=== PATIENT | female | born 1930 | race Caucasian/White ===

== ENCOUNTER 2020-03-22 04:45 | Inpatient (IN) | payer OTHER, MEDICARE ==
[2020-03-22] MEDS ORDERED: FUROSEMIDE 40 MG/4 ML INJECTABLE VIAL IVPUSH ONE (05:02)
[2020-03-22 05:03] VITALS: BMI 29.2
[2020-03-22] MEDS ORDERED: METOPROLOL TARTRATE 5 MG/5 ML VIAL IVPUSH ONE (05:45)
[2020-03-22] MEDS ORDERED: FUROSEMIDE 40 MG/4 ML INJECTABLE VIAL ONE ×2 (06:00→13:58)
[2020-03-22] MEDS ORDERED: METOPROLOL TARTRATE 5 MG/5 ML VIAL ONE ×2 (06:02→14:30)
[2020-03-22 06:51] LABS: BASO % 0.2 % (0-2.0); EOS % 0.4 % (0-4.5); HEMATOCRIT 39.1 % (32.4-45.2); HEMOGLOBIN 12.9 GM/dL (10.7-15.3); LYMPH % 9.5 % (8-40); MCH 32.1 pg (25.7-33.7); MCHC 32.9 g/dl (32.0-36.0); MEAN CELL VOLUME 97.5 fl (80-96); MEAN PLT VOLUME 10.3 fl (7.5-11.1); MONO % 7.7 % (3.8-10.2); NEUT % 82.2 % (42.8-82.8); PLATELET COUNT 170 K/MM3 (134-434); RBC 4.01 M/mm3 (3.60-5.2); RDW 14.1 % (11.6-15.6); WHITE BLOOD COUNT 12.1 K/mm3 (4.0-10.0)
[2020-03-22] MEDS ORDERED: METOPROLOL TARTRATE 25 MG TABLET (FP) PO ONE (07:08)
[2020-03-22 07:16] LABS: CHLORIDE 106 mmol/L (98-107); POTASSIUM 4.1 mmol/L (3.5-5.1); SODIUM 140 mmol/L (136-145)
[2020-03-22 07:17] LABS: CALCIUM 9.1 mg/dL (8.5-10.1)
[2020-03-22 07:18] LABS: ALBUMIN 3.6 g/dl (3.4-5.0); ANION GAP 6 MMOL/L (8-16); BLOOD UREA NITROGEN 22.8 mg/dL (7-18); CO2 28 mmol/L (21-32); GLUCOSE,RANDOM 133 mg/dL (74-106)
[2020-03-22 07:21] LABS: CREATININE 0.8 mg/dL (0.55-1.3); SGOT/AST 56 U/L (15-37); SGPT/ALT 85 U/L (13-61)
[2020-03-22 07:22] LABS: BILIRUBIN,TOTAL 1.1 mg/dL (0.2-1)
[2020-03-22 07:23] LABS: ALK PHOS 114 U/L (45-117); TOT PROT 7.3 g/dl (6.4-8.2)
[2020-03-22 07:26] LABS: N-TERMINAL BNP 4716.6 pg/ml (5-450)
[2020-03-22] MEDS ORDERED: METOPROLOL TARTRATE 25 MG TABLET (FP) ONE (08:01)
[2020-03-22] MEDS ORDERED: ATORVASTATIN CA 20 MG TABLET (FP) PO SCH (13:45)
[2020-03-22] MEDS ORDERED: APIXABAN 2.5 MG TABLET ONE (13:57)
[2020-03-22] MEDS ORDERED: ATORVASTATIN CA 20 MG TABLET (FP) ONE (13:57)
[2020-03-22] MEDS ORDERED: LISINOPRIL 20 MG TABLET ONE (13:58)
[2020-03-22] MEDS ORDERED: METOPROLOL TARTRATE 5 MG/5 ML VIAL IVPUSH PRN (14:09)
[2020-03-22] MEDS: LISINOPRIL 20 MG TABLET PO SCH (14:18)
[2020-03-22] MEDS: ATORVASTATIN CA 20 MG TABLET (FP) PO SCH (14:18)
[2020-03-22] MEDS: APIXABAN 2.5 MG TABLET PO SCH ×2 (14:18→21:54)
[2020-03-22] MEDS: FUROSEMIDE 40 MG/4 ML INJECTABLE VIAL IVPUSH SCH (14:18)
[2020-03-22] MEDS: METOPROLOL TARTRATE 25 MG TABLET (FP) PO SCH (21:54)
[2020-03-23] MEDS: FUROSEMIDE 40 MG/4 ML INJECTABLE VIAL IVPUSH SCH ×2 (05:57→13:35)
[2020-03-23 07:43] LABS: BASO % 0.2 % (0-2.0); EOS % 0.7 % (0-4.5); HEMOGLOBIN 12.3 GM/dL (10.7-15.3); LYMPH % 12.5 % (8-40); MCH 32.2 pg (25.7-33.7); MCHC 33.2 g/dl (32.0-36.0); MONO % 10.7 % (3.8-10.2); NEUT % 75.9 % (42.8-82.8); PLATELET COUNT 163 K/MM3 (134-434); RBC 3.82 M/mm3 (3.60-5.2); RDW 13.7 % (11.6-15.6); WHITE BLOOD COUNT 10.3 K/mm3 (4.0-10.0)
[2020-03-23 08:05] LABS: CHLORIDE 102 mmol/L (98-107); POTASSIUM 3.6 mmol/L (3.5-5.1); SODIUM 141 mmol/L (136-145)
[2020-03-23 08:07] LABS: CALCIUM 9.1 mg/dL (8.5-10.1)
[2020-03-23 08:08] LABS: ANION GAP 7 MMOL/L (8-16); CO2 32 mmol/L (21-32)
[2020-03-23 08:09] LABS: BLOOD UREA NITROGEN 24.3 mg/dL (7-18); GLUCOSE,RANDOM 126 mg/dL (74-106)
[2020-03-23 08:10] LABS: CHOLESTEROL 130 mg/dL (50-200)
[2020-03-23 08:12] LABS: LDL CHOLESTEROL (ONLY SJRH) 70 mg/dL (5-100); PHOSPHOROUS 4.2 mg/dL (2.5-4.9)
[2020-03-23 08:13] LABS: TRIGLYCERIDES 100 mg/dL (0-150)
[2020-03-23 08:14] LABS: HDL CHOLESTEROL 57 mg/dL (40-60)
[2020-03-23] MEDS: APIXABAN 2.5 MG TABLET PO SCH (10:04)
[2020-03-23] MEDS: LISINOPRIL 20 MG TABLET PO SCH (10:05)
[2020-03-23] MEDS: METOPROLOL TARTRATE 25 MG TABLET (FP) PO SCH ×2 (10:05→21:48)
[2020-03-23] MEDS: amLODIPine BESYLATE 10 MG TABLET (FP) PO SCH (10:05)
[2020-03-23] MEDS: ATORVASTATIN CA 20 MG TABLET (FP) PO SCH (21:48)
[2020-03-23] MEDS: APIXABAN 5 MG TABLET PO SCH (21:48)
[2020-03-24] MEDS: FUROSEMIDE 40 MG/4 ML INJECTABLE VIAL IVPUSH SCH ×2 (06:20→13:17)
[2020-03-24] MEDS ORDERED: ALBUTEROL SO4 0.042% IH SOL 1.25 MG/3 ML VIAL.NEB NEB ONE ×2 (06:30→14:15)
[2020-03-24 07:18] LABS: BASO % 0.4 % (0-2.0); EOS % 3.2 % (0-4.5); HEMATOCRIT 38.5 % (32.4-45.2); HEMOGLOBIN 12.9 GM/dL (10.7-15.3); MCH 32.4 pg (25.7-33.7); MCHC 33.6 g/dl (32.0-36.0); MEAN CELL VOLUME 96.7 fl (80-96); MONO % 12.8 % (3.8-10.2); NEUT % 67.6 % (42.8-82.8); PLATELET COUNT 162 K/MM3 (134-434); RBC 3.98 M/mm3 (3.60-5.2); WHITE BLOOD COUNT 7.7 K/mm3 (4.0-10.0)
[2020-03-24 07:42] LABS: POTASSIUM 3.5 mmol/L (3.5-5.1)
[2020-03-24 07:47] LABS: ALBUMIN 3.2 g/dl (3.4-5.0)
[2020-03-24 07:48] LABS: BLOOD UREA NITROGEN 27.6 mg/dL (7-18)
[2020-03-24 07:52] LABS: BILIRUBIN,TOTAL 1.4 mg/dL (0.2-1); TOT PROT 6.7 g/dl (6.4-8.2)
[2020-03-24] MEDS: METOPROLOL TARTRATE 25 MG TABLET (FP) PO SCH ×2 (09:48→22:03)
[2020-03-24] MEDS: amLODIPine BESYLATE 10 MG TABLET (FP) PO SCH (09:48)
[2020-03-24] MEDS: LISINOPRIL 20 MG TABLET PO SCH (09:48)
[2020-03-24] MEDS: APIXABAN 5 MG TABLET PO SCH ×2 (09:48→22:03)
[2020-03-24] MEDS: ATORVASTATIN CA 20 MG TABLET (FP) PO SCH (22:03)
[2020-03-25] MEDS: FUROSEMIDE 40 MG/4 ML INJECTABLE VIAL IVPUSH SCH ×2 (05:57→14:29)
[2020-03-25 07:58] LABS: HEMATOCRIT 42.4 % (32.4-45.2); HEMOGLOBIN 14.3 GM/dL (10.7-15.3); MCH 32.9 pg (25.7-33.7); MCHC 33.6 g/dl (32.0-36.0); MEAN CELL VOLUME 97.7 fl (80-96); MEAN PLT VOLUME 10.2 fl (7.5-11.1); PLATELET COUNT 188 K/MM3 (134-434); RBC 4.34 M/mm3 (3.60-5.2); RDW 13.8 % (11.6-15.6)
[2020-03-25 08:29] LABS: POTASSIUM 3.7 mmol/L (3.5-5.1)
[2020-03-25 08:33] LABS: ALBUMIN 3.7 g/dl (3.4-5.0); CALCIUM 9.5 mg/dL (8.5-10.1)
[2020-03-25 08:34] LABS: BLOOD UREA NITROGEN 26.2 mg/dL (7-18)
[2020-03-25 08:38] LABS: BILIRUBIN,TOTAL 1.2 mg/dL (0.2-1); TOT PROT 7.5 g/dl (6.4-8.2)
[2020-03-25] MEDS: amLODIPine BESYLATE 10 MG TABLET (FP) PO SCH (09:02)
[2020-03-25] MEDS: LISINOPRIL 20 MG TABLET PO SCH (09:02)
[2020-03-25] MEDS: APIXABAN 5 MG TABLET PO SCH ×2 (09:02→21:44)
[2020-03-25] MEDS: METOPROLOL TARTRATE 25 MG TABLET (FP) PO SCH ×2 (09:02→21:44)
[2020-03-25] MEDS ORDERED: BENZOCAINE/MENTH/CETYLPYRD CL 1 EACH LOZENGE MM PRN (10:30)
[2020-03-25] MEDS: ALBUTEROL SO4 0.083% IH SOL 2.5 MG/3 ML VIAL.NEB. NEB PRN ×2 (13:40→21:25)
[2020-03-25] MEDS: ATORVASTATIN CA 20 MG TABLET (FP) PO SCH (21:44)
[2020-03-26] MEDS: FUROSEMIDE 40 MG/4 ML INJECTABLE VIAL IVPUSH SCH ×2 (06:00→14:06)
[2020-03-26 07:21] LABS: HEMATOCRIT 37.7 % (32.4-45.2); HEMOGLOBIN 12.9 GM/dL (10.7-15.3); MCH 33.5 pg (25.7-33.7); MCHC 34.3 g/dl (32.0-36.0); MEAN CELL VOLUME 97.5 fl (80-96); MEAN PLT VOLUME 10.8 fl (7.5-11.1); PLATELET COUNT 166 K/MM3 (134-434); RBC 3.86 M/mm3 (3.60-5.2); RDW 13.8 % (11.6-15.6); WHITE BLOOD COUNT 8.6 K/mm3 (4.0-10.0)
[2020-03-26 07:40] LABS: POTASSIUM 3.4 mmol/L (3.5-5.1)
[2020-03-26 07:54] LABS: ALBUMIN 2.8 g/dl (3.4-5.0); CALCIUM 9.1 mg/dL (8.5-10.1)
[2020-03-26 07:59] LABS: TOT PROT 6.3 g/dl (6.4-8.2)
[2020-03-26] MEDS: LISINOPRIL 20 MG TABLET PO SCH (10:00)
[2020-03-26] MEDS: METOPROLOL TARTRATE 25 MG TABLET (FP) PO SCH ×2 (10:00→22:14)
[2020-03-26] MEDS: amLODIPine BESYLATE 10 MG TABLET (FP) PO SCH (10:00)
[2020-03-26] MEDS: APIXABAN 5 MG TABLET PO SCH ×2 (10:01→22:14)
[2020-03-26] MEDS ORDERED: POTASSIUM CHLORIDE TABS 20 MEQ TABLET.ER (FP) PO ONE (14:35)
[2020-03-26] MEDS: ATORVASTATIN CA 20 MG TABLET (FP) PO SCH (22:14)
[2020-03-27] MEDS: FUROSEMIDE 40 MG/4 ML INJECTABLE VIAL IVPUSH SCH (06:09)
[2020-03-27] MEDS ORDERED: POTASSIUM CHLORIDE TABS 20 MEQ TABLET.ER (FP) PO ONE (07:59)
[2020-03-27 09:03] VITALS: TEMP 98.2
[2020-03-27] MEDS: APIXABAN 5 MG TABLET PO SCH (09:20)
[2020-03-27] MEDS: METOPROLOL TARTRATE 25 MG TABLET (FP) PO SCH (09:20)
[2020-03-27] MEDS: amLODIPine BESYLATE 10 MG TABLET (FP) PO SCH (09:20)
[2020-03-27] MEDS: LISINOPRIL 20 MG TABLET PO SCH (09:20)
[2020-03-27 14:48] VITALS: BP 122/74; PULSE 62
== END 2020-03-27 16:00 | disposition home health service (06) | DRG 291 ==
LOC: JER 04:45 → JERBED 09:00 → J4S 18:38
PROVIDERS: ADMIT Internal Medicine; ATTEND Internal Medicine
DX: I11.0 Hypertensive heart disease with heart failure (principal); I50.31 Acute diastolic (congestive) heart failure; J98.11 Atelectasis; E78.5 Hyperlipidemia, unspecified; I48.91 Unspecified atrial fibrillation; D72.829 Elevated white blood cell count, unspecified; I25.10 Atherosclerotic heart disease of native coronary artery without angina pectoris; I71.2 Thoracic aortic aneurysm, without rupture; Z86.19 Personal history of other infectious and parasitic diseases
CPT/HCPCS: 36415; 71045-TC-FY; 80048; 80053; 80061; 82550; 82728; 83036; 83721; 83735; 83880; 84100; 84132; 84443; 84484; 85025; 85027; 85379; 86140; 93005; 93010; 93306-TC; 93970-TC; 94640; 94761; 97116-GP; 97161-GP; 99291; C9803; U0003

== ENCOUNTER 2020-05-03 09:52 | Inpatient (IN) | payer OTHER, MEDICARE ==
[2020-05-03] MEDS ORDERED: dilTIAZem HCL 50 MG/10 ML - 10 ML VIAL IVPUSH ONE ×2 (10:31→12:43)
[2020-05-03] MEDS ORDERED: dilTIAZem HCL 125 MG/25 ML - 25 ML VIAL ONE ×2 (10:57→12:49)
[2020-05-03 11:57] LABS: BASO % 0.2 % (0-2.0); EOS % 0.1 % (0-4.5); HEMATOCRIT 37.8 % (32.4-45.2); HEMOGLOBIN 12.5 GM/dL (10.7-15.3); LYMPH % 6.4 % (8-40); MCH 32.6 pg (25.7-33.7); MCHC 33.1 g/dl (32.0-36.0); MEAN CELL VOLUME 98.5 fl (80-96); MEAN PLT VOLUME 10.9 fl (7.5-11.1); MONO % 6.5 % (3.8-10.2); NEUT % 86.8 % (42.8-82.8); PLATELET COUNT 151 K/MM3 (134-434); RBC 3.84 M/mm3 (3.60-5.2); RDW 14.5 % (11.6-15.6); WHITE BLOOD COUNT 10.7 K/mm3 (4.0-10.0)
[2020-05-03] MEDS ORDERED: PIPERACILLIN/TAZOB 4.5 GM 4.5 GM in DEXTROSE 5%-WATER 100 ML IVPB ONE (12:03)
[2020-05-03] MEDS ORDERED: VANCOMYCIN HCL 1,500 MG in DEXTROSE 5%-WATER - 500 ML IVPB ONE (12:03)
[2020-05-03 12:04] LABS: INR 1.28 (0.83-1.09); PROTHROMBIN TIME (PATIENT) 15.6 SEC (9.7-13.0)
[2020-05-03 12:07] LABS: ACTIVATED PTT 30.7 SECONDS (25.2-36.5)
[2020-05-03] MEDS ORDERED: PIPERACILLIN/TAZOB 4.5 GM 4.5 GM/100 ML BAG IVPB ONE (12:13)
[2020-05-03 12:17] LABS: CHLORIDE 109 mmol/L (98-107); SODIUM 141 mmol/L (136-145)
[2020-05-03 12:19] LABS: ALBUMIN 3.6 g/dl (3.4-5.0); ANION GAP 4 MMOL/L (8-16); CALCIUM 9.2 mg/dL (8.5-10.1); CO2 28 mmol/L (21-32); GLUCOSE,RANDOM 139 mg/dL (74-106)
[2020-05-03 12:20] LABS: BLOOD UREA NITROGEN 33.9 mg/dL (7-18)
[2020-05-03 12:22] LABS: SGOT/AST 33 U/L (15-37); SGPT/ALT 64 U/L (13-61)
[2020-05-03 12:23] LABS: CREATININE 1.1 mg/dL (0.55-1.3)
[2020-05-03 12:24] LABS: BILIRUBIN,TOTAL 0.8 mg/dL (0.2-1)
[2020-05-03 12:25] LABS: ALK PHOS 88 U/L (45-117)
[2020-05-03 12:27] LABS: N-TERMINAL BNP 4797.6 pg/ml (5-450)
[2020-05-03] MEDS ORDERED: dilTIAZem HCL 30 MG TABLET PO ONE (12:44)
[2020-05-03] MEDS ORDERED: dilTIAZem HCL 30 MG TABLET ONE (12:49)
[2020-05-03] MEDS ORDERED: FUROSEMIDE 40 MG/4 ML INJECTABLE VIAL ONE (15:08)
[2020-05-03] MEDS: FUROSEMIDE 40 MG/4 ML INJECTABLE VIAL IVPUSH SCH (15:09)
[2020-05-03] MEDS: METOPROLOL TARTRATE 5 MG/5 ML VIAL IVPUSH PRN (15:30)
[2020-05-03] MEDS ORDERED: METOPROLOL TARTRATE 5 MG/5 ML VIAL ONE (16:01)
[2020-05-03] MEDS ORDERED: APIXABAN 5 MG TABLET ONE (21:48)
[2020-05-03] MEDS ORDERED: ATORVASTATIN CA 20 MG TABLET (FP) ONE (21:48)
[2020-05-03] MEDS: APIXABAN 5 MG TABLET PO SCH (21:59)
[2020-05-03] MEDS: ATORVASTATIN CA 20 MG TABLET (FP) PO SCH (21:59)
[2020-05-04 06:45] LABS: HEMATOCRIT 35.3 % (32.4-45.2); HEMOGLOBIN 11.7 GM/dL (10.7-15.3); MCH 32.9 pg (25.7-33.7); MCHC 33.1 g/dl (32.0-36.0); MEAN CELL VOLUME 99.4 fl (80-96); MEAN PLT VOLUME 10.6 fl (7.5-11.1); PLATELET COUNT 140 K/MM3 (134-434); RBC 3.55 M/mm3 (3.60-5.2); RDW 14.2 % (11.6-15.6); WHITE BLOOD COUNT 9.2 K/mm3 (4.0-10.0)
[2020-05-04 07:07] LABS: CALCIUM 8.4 mg/dL (8.5-10.1)
[2020-05-04 07:08] LABS: BLOOD UREA NITROGEN 30.7 mg/dL (7-18)
[2020-05-04] MEDS ORDERED: metoPROLOL SUCCINATE 25 MG TAB.SR.24H (FP) PO SCH (10:00)
[2020-05-04] MEDS: APIXABAN 5 MG TABLET PO SCH ×2 (10:46→21:14)
[2020-05-04] MEDS: FUROSEMIDE 40 MG/4 ML INJECTABLE VIAL IVPUSH SCH (10:47)
[2020-05-04] MEDS: ATORVASTATIN CA 20 MG TABLET (FP) PO SCH (21:14)
[2020-05-05] MEDS ORDERED: MELATONIN 5 MG TABLETS PO ONE (00:25)
[2020-05-05] MEDS: METOPROLOL TARTRATE 5 MG/5 ML VIAL IVPUSH PRN ×3 (00:39→16:19)
[2020-05-05] MEDS ORDERED: FUROSEMIDE 40 MG/4 ML INJECTABLE VIAL IVPUSH ONE (04:45)
[2020-05-05 08:18] LABS: BLOOD UREA NITROGEN 32.2 mg/dL (7-18); CALCIUM 8.9 mg/dL (8.5-10.1); MAGNESIUM 2.2 mg/dL (1.8-2.4)
[2020-05-05] MEDS: APIXABAN 5 MG TABLET PO SCH ×2 (09:24→21:07)
[2020-05-05] MEDS: FUROSEMIDE 40 MG/4 ML INJECTABLE VIAL IVPUSH SCH (09:24)
[2020-05-05] MEDS: NYSTATIN 100000 UNIT/GM TOPICAL OINTMENT 15 GM TUBE TP SCH ×2 (11:41→21:07)
[2020-05-05] MEDS: ATORVASTATIN CA 20 MG TABLET (FP) PO SCH (21:07)
[2020-05-06] MEDS: FUROSEMIDE 40 MG/4 ML INJECTABLE VIAL IVPUSH SCH ×2 (06:45→09:30)
[2020-05-06 07:01] LABS: HEMATOCRIT 37.6 % (32.4-45.2); HEMOGLOBIN 12.3 GM/dL (10.7-15.3); MCH 32.8 pg (25.7-33.7); MCHC 32.8 g/dl (32.0-36.0); MEAN PLT VOLUME 10.3 fl (7.5-11.1); PLATELET COUNT 167 K/MM3 (134-434); RBC 3.76 M/mm3 (3.60-5.2); RDW 14.2 % (11.6-15.6); WHITE BLOOD COUNT 8.5 K/mm3 (4.0-10.0)
[2020-05-06 07:22] LABS: CALCIUM 9.1 mg/dL (8.5-10.1)
[2020-05-06 07:23] LABS: BLOOD UREA NITROGEN 31.3 mg/dL (7-18)
[2020-05-06 07:26] LABS: PHOSPHOROUS 4.4 mg/dL (2.5-4.9)
[2020-05-06 07:27] LABS: MAGNESIUM 2.1 mg/dL (1.8-2.4)
[2020-05-06] MEDS: NYSTATIN 100000 UNIT/GM TOPICAL OINTMENT 15 GM TUBE TP SCH ×2 (09:01→21:14)
[2020-05-06] MEDS: APIXABAN 5 MG TABLET PO SCH ×2 (09:01→21:14)
[2020-05-06] MEDS ORDERED: FUROSEMIDE 40 MG/4 ML INJECTABLE VIAL IVPUSH ONE (10:47)
[2020-05-06] MEDS ORDERED: metoPROLOL SUCCINATE 25 MG TAB.SR.24H (FP) PO ONE (10:49)
[2020-05-06] MEDS: ATORVASTATIN CA 20 MG TABLET (FP) PO SCH (21:14)
[2020-05-07 08:09] LABS: HEMATOCRIT 38.5 % (32.4-45.2); HEMOGLOBIN 12.8 GM/dL (10.7-15.3); MCH 32.7 pg (25.7-33.7); MCHC 33.2 g/dl (32.0-36.0); MEAN CELL VOLUME 98.7 fl (80-96); MEAN PLT VOLUME 10.4 fl (7.5-11.1); PLATELET COUNT 172 K/MM3 (134-434); WHITE BLOOD COUNT 8.9 K/mm3 (4.0-10.0)
[2020-05-07 08:23] LABS: BLOOD UREA NITROGEN 34.1 mg/dL (7-18); CALCIUM 8.8 mg/dL (8.5-10.1)
[2020-05-07] MEDS ORDERED: PT OWN MED DRAWER 7, Y5N ONE (09:44)
[2020-05-07] MEDS: APIXABAN 5 MG TABLET PO SCH ×2 (09:48→21:02)
[2020-05-07] MEDS: FUROSEMIDE 40 MG/4 ML INJECTABLE VIAL IVPUSH SCH (09:48)
[2020-05-07] MEDS: NYSTATIN 100000 UNIT/GM TOPICAL OINTMENT 15 GM TUBE TP SCH ×2 (09:49→21:03)
[2020-05-07] MEDS ORDERED: ACETAMINOPHEN 325 MG TABLET (FP) PO PRN (11:39)
[2020-05-07] MEDS ORDERED: FUROSEMIDE 40 MG/4 ML INJECTABLE VIAL IVPUSH ONE (12:00)
[2020-05-07] MEDS: ATORVASTATIN CA 20 MG TABLET (FP) PO SCH (21:02)
[2020-05-08 07:46] LABS: HEMATOCRIT 38.4 % (32.4-45.2); HEMOGLOBIN 12.7 GM/dL (10.7-15.3); MCH 32.7 pg (25.7-33.7); MEAN PLT VOLUME 10.8 fl (7.5-11.1); PLATELET COUNT 163 K/MM3 (134-434); RBC 3.88 M/mm3 (3.60-5.2); RDW 14.4 % (11.6-15.6); WHITE BLOOD COUNT 7.7 K/mm3 (4.0-10.0)
[2020-05-08 08:02] LABS: BLOOD UREA NITROGEN 36.6 mg/dL (7-18); MAGNESIUM 2.2 mg/dL (1.8-2.4)
[2020-05-08 08:05] LABS: CREATININE 0.9 mg/dL (0.55-1.3); PHOSPHOROUS 4.2 mg/dL (2.5-4.9)
[2020-05-08] MEDS ORDERED: PT OWN MED DRAWER 7, Y5N ONE (09:02)
[2020-05-08] MEDS: FUROSEMIDE 40 MG/4 ML INJECTABLE VIAL IVPUSH SCH (09:06)
[2020-05-08] MEDS: APIXABAN 5 MG TABLET PO SCH ×2 (09:08→21:23)
[2020-05-08] MEDS: NYSTATIN 100000 UNIT/GM TOPICAL OINTMENT 15 GM TUBE TP SCH ×2 (09:08→21:25)
[2020-05-08] MEDS ORDERED: dilTIAZem HCL 60 MG TABLET PO SCH (10:45)
[2020-05-08] MEDS: dilTIAZem HCL 60 MG TABLET PO SCH ×2 (16:14→21:23)
[2020-05-08] MEDS: ATORVASTATIN CA 20 MG TABLET (FP) PO SCH (21:23)
[2020-05-09] MEDS: dilTIAZem HCL 60 MG TABLET PO SCH ×3 (05:53→21:01)
[2020-05-09 06:40] LABS: HEMOGLOBIN 12.2 GM/dL (10.7-15.3); MCH 32.7 pg (25.7-33.7); MEAN CELL VOLUME 98.9 fl (80-96); MEAN PLT VOLUME 10.6 fl (7.5-11.1); PLATELET COUNT 174 K/MM3 (134-434); RBC 3.74 M/mm3 (3.60-5.2); RDW 14.2 % (11.6-15.6); WHITE BLOOD COUNT 8.6 K/mm3 (4.0-10.0)
[2020-05-09 07:07] LABS: CALCIUM 8.6 mg/dL (8.5-10.1)
[2020-05-09 07:08] LABS: MAGNESIUM 2.2 mg/dL (1.8-2.4)
[2020-05-09 07:11] LABS: CREATININE 1.2 mg/dL (0.55-1.3); PHOSPHOROUS 3.6 mg/dL (2.5-4.9)
[2020-05-09] MEDS: FUROSEMIDE 40 MG/4 ML INJECTABLE VIAL IVPUSH SCH (09:02)
[2020-05-09] MEDS: APIXABAN 5 MG TABLET PO SCH ×2 (09:02→21:01)
[2020-05-09] MEDS: NYSTATIN 100000 UNIT/GM TOPICAL OINTMENT 15 GM TUBE TP SCH ×2 (09:03→21:01)
[2020-05-09] MEDS: ATORVASTATIN CA 20 MG TABLET (FP) PO SCH (21:01)
[2020-05-10] MEDS: dilTIAZem HCL 60 MG TABLET PO SCH ×2 (06:06→13:26)
[2020-05-10] MEDS: APIXABAN 5 MG TABLET PO SCH (09:02)
[2020-05-10] MEDS: NYSTATIN 100000 UNIT/GM TOPICAL OINTMENT 15 GM TUBE TP SCH (09:45)
[2020-05-10] MEDS ORDERED: FUROSEMIDE 40 MG TABLET (FP) PO SCH (10:00)
[2020-05-10 13:26] VITALS: BP 140/68; PULSE 90; TEMP 98.4
[2020-05-10 13:57] VITALS: BMI 32.8
== END 2020-05-10 16:50 | disposition home health service (06) | DRG 308 ==
LOC: JER 09:52 → JERBED 12:45 → J4W 23:14 → J4S 05-05 21:40
PROVIDERS: ADMIT Internal Medicine; ATTEND Internal Medicine
DX: I48.19 Other persistent atrial fibrillation (principal); I50.33 Acute on chronic diastolic (congestive) heart failure; I10 Essential (primary) hypertension; E78.5 Hyperlipidemia, unspecified; K63.5 Polyp of colon; I25.10 Atherosclerotic heart disease of native coronary artery without angina pectoris; E66.9 Obesity, unspecified; Z68.32 Body mass index [BMI] 32.0-32.9, adult; I77.810 Thoracic aortic ectasia; R00.0 Tachycardia, unspecified
CPT/HCPCS: 36415; 71045-TC-FY; 80048; 80053; 82550; 82962; 83735; 83880; 84100; 84443; 84484; 85025; 85027; 85610; 85730; 87040; 93005; 93010; 97116-GP; 97161-GP; 99285-25; C9803; U0003

== ENCOUNTER 2020-06-22 09:31 | Emergency (ER) | payer OTHER, MEDICARE ==
[2020-06-22 09:39] VITALS: TEMP 97.5; BMI 30.5
[2020-06-22 10:42] LABS: BASO % 0.3 % (0-2.0); EOS % 0.5 % (0-4.5); HEMATOCRIT 39.7 % (32.4-45.2); HEMOGLOBIN 13.2 GM/dL (10.7-15.3); LYMPH % 10.1 % (8-40); MCH 32.6 pg (25.7-33.7); MCHC 33.1 g/dl (32.0-36.0); MEAN CELL VOLUME 98.3 fl (80-96); MEAN PLT VOLUME 9.9 fl (7.5-11.1); MONO % 9.5 % (3.8-10.2); NEUT % 79.6 % (42.8-82.8); PLATELET COUNT 180 K/MM3 (134-434); RBC 4.04 M/mm3 (3.60-5.2); RDW 14.1 % (11.6-15.6); WHITE BLOOD COUNT 7.4 K/mm3 (4.0-10.0)
[2020-06-22 10:53] LABS: POTASSIUM 3.8 mmol/L (3.5-5.1)
[2020-06-22 10:55] LABS: BLOOD UREA NITROGEN 42.8 mg/dL (7-18); CALCIUM 9.1 mg/dL (8.5-10.1)
[2020-06-22 10:56] LABS: ALBUMIN 3.4 g/dl (3.4-5.0)
[2020-06-22 10:59] LABS: CREATININE 1.2 mg/dL (0.55-1.3)
[2020-06-22 11:01] LABS: BILIRUBIN,TOTAL 0.9 mg/dL (0.2-1); TOT PROT 6.9 g/dl (6.4-8.2)
[2020-06-22 11:39] LABS: EPI CELLS 13 /uL (0-25.1); HYALINE CASTS 0 /uL (0-3.1); PH,URINE 6.5 (5.0-8.0); URINE APPEARANCE CLEAR; URINE BACTERIA 224 /uL (0-1359); URINE BILIRUBIN NEGATIVE (NEGATIVE); URINE COLOR YELLOW; URINE GLUCOSE (UA) NEGATIVE (NEGATIVE); URINE KETONE NEGATIVE (NEGATIVE); URINE LEUK ESTERASE TRACE (NEGATIVE); URINE NITRITE NEGATIVE (NEGATIVE); URINE PROTEIN TRACE (NEGATIVE); URINE RBC 12 /uL (0-23.9); URINE UROBILINOGEN 0.2 mg/dL (0.2-1.0); URINE WBC 30 /uL (0-25.8)
[2020-06-22] MEDS ORDERED: IBUPROFEN 600 MG TABLET (FP) PO ONE (12:35)
[2020-06-22] MEDS ORDERED: ACETAMINOPHEN 325 MG TABLET (FP) PO ONE (12:36)
[2020-06-22] MEDS ORDERED: ACETAMINOPHEN 325 MG TABLET (FP) ONE (12:53)
[2020-06-22] MEDS ORDERED: LACTATED RINGERS SOLUTION 1000 ML INFUS.BAG IV ONE ×2 (13:35)
[2020-06-22] MEDS ORDERED: METOPROLOL TARTRATE 50 MG TABLET (FP) ONE (15:10)
[2020-06-22 15:21] VITALS: BP 149/94
[2020-06-22 16:06] VITALS: PULSE 90
== END 2020-06-22 16:29 | disposition home or self-care (01) ==
LOC: JER 09:31 → SUPCPDRO 09:31 → JER 16:29
DX: M54.41 Lumbago with sciatica, right side (principal)
CPT/HCPCS: 36415; 71045-TC-FY; 74176-TC; 76705-TC; 80053; 81003; 85025; 87086; 93005; 93010; 99285-25

== ENCOUNTER 2020-07-16 20:17 | Inpatient (IN) | payer OTHER, MEDICARE ==
[2020-07-16] MEDS ORDERED: LIDOCAINE 5% TOPICAL PATCH TP ONE (21:16)
[2020-07-16] MEDS ORDERED: LIDOCAINE 5% TOPICAL PATCH ONE (21:32)
[2020-07-16] MEDS ORDERED: LIDOCAINE PATCH REMOVAL MC SCH (22:00)
[2020-07-16] MEDS ORDERED: KETOROLAC TROMETHAMINE 15 MG/ML VIAL IVPUSH ONE (22:30)
[2020-07-16] MEDS ORDERED: KETOROLAC TROMETHAMINE 15 MG/ML VIAL ONE (22:49)
[2020-07-16 22:56] LABS: EOS % 1.6 % (0-4.5); HEMATOCRIT 36.5 % (32.4-45.2); MCH 31.3 pg (25.7-33.7); MCHC 32.7 g/dl (32.0-36.0); MEAN CELL VOLUME 95.5 fl (80-96); MONO % 16.6 % (3.8-10.2); NEUT % 61.8 % (42.8-82.8); PLATELET COUNT 208 K/MM3 (134-434); RBC 3.83 M/mm3 (3.60-5.2); RDW 14.7 % (11.6-15.6); WHITE BLOOD COUNT 7.7 K/mm3 (4.0-10.0)
[2020-07-16 23:32] LABS: POTASSIUM 4.2 mmol/L (3.5-5.1)
[2020-07-16 23:34] LABS: ALBUMIN 3.3 g/dl (3.4-5.0); CALCIUM 9.3 mg/dL (8.5-10.1)
[2020-07-16 23:37] LABS: CREATININE 1.5 mg/dL (0.55-1.3)
[2020-07-16 23:39] LABS: BILIRUBIN,TOTAL 0.4 mg/dL (0.2-1); TOT PROT 6.4 g/dl (6.4-8.2)
[2020-07-17 00:39] LABS: EPI CELLS 10 /uL (0-25.1); HYALINE CASTS 2 /uL (0-3.1); URINE APPEARANCE CLEAR; URINE BACTERIA 301 /uL (0-1359); URINE BILIRUBIN NEGATIVE (NEGATIVE); URINE COLOR YELLOW; URINE GLUCOSE (UA) NEGATIVE (NEGATIVE); URINE KETONE NEGATIVE (NEGATIVE); URINE LEUK ESTERASE 2+ (NEGATIVE); URINE NITRITE NEGATIVE (NEGATIVE); URINE PROTEIN 1+ (NEGATIVE); URINE RBC 8 /uL (0-23.9); URINE UROBILINOGEN 0.2 mg/dL (0.2-1.0); URINE WBC 289 /uL (0-25.8)
[2020-07-17] MEDS ORDERED: FUROSEMIDE 40 MG/4 ML INJECTABLE VIAL IVPUSH ONE (02:03)
[2020-07-17] MEDS ORDERED: ACETAMINOPHEN 1000 MG/100 ML VIAL (NON FORMULARY) IVPB ONE (02:05)
[2020-07-17] MEDS ORDERED: ACETAMINOPHEN 325 MG TABLET (FP) PO ONE (02:05)
[2020-07-17] MEDS ORDERED: ACETAMINOPHEN 500 MG TABLET (FP) PO ONE (02:06)
[2020-07-17] MEDS ORDERED: ACETAMINOPHEN INJECTION 100 ML IVPB ONE (02:06)
[2020-07-17] MEDS ORDERED: KETOROLAC TROMETHAMINE 15 MG/ML VIAL IVPUSH PRN (02:08)
[2020-07-17] MEDS ORDERED: SODIUM CHLORIDE 1,000 ML IV SCH (02:15)
[2020-07-17] MEDS ORDERED: FUROSEMIDE 40 MG/4 ML INJECTABLE VIAL ONE (03:07)
[2020-07-17] MEDS ORDERED: CEFTRIAXONE 1 GM/50 ML BAG ONE (04:33)
[2020-07-17] MEDS: CEFTRIAXONE 1 GM in DEXTROSE 5%-WATER - 50 ML IVPB SCH (04:38)
[2020-07-17] MEDS ORDERED: morphine CARPU-JECT 2 MG/1 ML DISP.SYRIN IVPUSH ONE (04:56)
[2020-07-17] MEDS ORDERED: MORPHINE SULFATE 2 MG/ML VIAL ONE (05:01)
[2020-07-17] MEDS ORDERED: TRIMETHOBENZAMIDE HCL 200MG/2ML INJ IM PRN (06:52)
[2020-07-17] MEDS: INSULIN SLIDING SCALE (NOVOLOG) 1 VIAL SQ SCH ×3 (10:05→17:14)
[2020-07-17] MEDS ORDERED: LIDOCAINE 5% TOPICAL PATCH ONE (10:13)
[2020-07-17] MEDS ORDERED: APIXABAN 5 MG TABLET ONE (10:13)
[2020-07-17] MEDS: LIDOCAINE 5% TOPICAL PATCH TP SCH (10:26)
[2020-07-17] MEDS: APIXABAN 5 MG TABLET PO SCH ×2 (10:26→21:11)
[2020-07-17 10:34] LABS: BASO % 0.3 % (0-2.0); EOS % 0.9 % (0-4.5); HEMATOCRIT 36.2 % (32.4-45.2); HEMOGLOBIN 11.8 GM/dL (10.7-15.3); LYMPH % 14.4 % (8-40); MCH 31.2 pg (25.7-33.7); MCHC 32.6 g/dl (32.0-36.0); MEAN CELL VOLUME 95.9 fl (80-96); MEAN PLT VOLUME 9.4 fl (7.5-11.1); MONO % 10.3 % (3.8-10.2); NEUT % 74.1 % (42.8-82.8); PLATELET COUNT 214 K/MM3 (134-434); RBC 3.77 M/mm3 (3.60-5.2); RDW 14.5 % (11.6-15.6); WHITE BLOOD COUNT 6.9 K/mm3 (4.0-10.0)
[2020-07-17 10:51] LABS: POTASSIUM 4.4 mmol/L (3.5-5.1)
[2020-07-17 10:53] LABS: CALCIUM 9.4 mg/dL (8.5-10.1)
[2020-07-17 10:54] LABS: ALBUMIN 3.4 g/dl (3.4-5.0); BLOOD UREA NITROGEN 58.6 mg/dL (7-18); MAGNESIUM 2.2 mg/dL (1.8-2.4)
[2020-07-17 10:56] LABS: CREATININE 1.5 mg/dL (0.55-1.3)
[2020-07-17 10:57] LABS: PHOSPHOROUS 4.8 mg/dL (2.5-4.9)
[2020-07-17 10:58] LABS: BILIRUBIN,TOTAL 0.6 mg/dL (0.2-1); TOT PROT 6.5 g/dl (6.4-8.2)
[2020-07-17] MEDS: SODIUM CHLORIDE 1,000 ML IV SCH (13:30)
[2020-07-17] MEDS: CLOPIDOGREL BISULFATE 75 MG TABLET (FP) PO SCH (18:00)
[2020-07-17 19:49] LABS: URINE UREA NITROGEN 1201 mg/dL (350-1000)
[2020-07-17] MEDS: ACETAMINOPHEN 325 MG TABLET (FP) PO PRN (21:11)
[2020-07-17] MEDS: LIDOCAINE PATCH REMOVAL MC SCH ×2 (21:17→21:19)
[2020-07-18] MEDS: CYCLOBENZAPRINE HCL 5 MG TABLET PO PRN ×3 (01:41→13:58)
[2020-07-18] MEDS: ACETAMINOPHEN 325 MG TABLET (FP) PO PRN ×2 (03:16→10:22)
[2020-07-18] MEDS ORDERED: ACETAMINOPHEN 1000 MG/100 ML VIAL (NON FORMULARY) IVPB ONE (05:30)
[2020-07-18] MEDS: INSULIN SLIDING SCALE (NOVOLOG) 1 VIAL SQ SCH ×3 (06:00→16:57)
[2020-07-18 07:32] LABS: BASO % 0.4 % (0-2.0); EOS % 0.6 % (0-4.5); HEMATOCRIT 41.5 % (32.4-45.2); HEMOGLOBIN 13.3 GM/dL (10.7-15.3); LYMPH % 19.5 % (8-40); MCH 31.1 pg (25.7-33.7); MCHC 32.2 g/dl (32.0-36.0); MEAN CELL VOLUME 96.6 fl (80-96); MEAN PLT VOLUME 9.2 fl (7.5-11.1); MONO % 14.1 % (3.8-10.2); NEUT % 65.4 % (42.8-82.8); PLATELET COUNT 220 K/MM3 (134-434); RBC 4.29 M/mm3 (3.60-5.2); RDW 14.4 % (11.6-15.6); WHITE BLOOD COUNT 7.9 K/mm3 (4.0-10.0)
[2020-07-18 08:00] LABS: POTASSIUM 4.7 mmol/L (3.5-5.1)
[2020-07-18 08:11] LABS: BLOOD UREA NITROGEN 54.3 mg/dL (7-18); CALCIUM 9.3 mg/dL (8.5-10.1)
[2020-07-18 08:12] LABS: ALBUMIN 3.3 g/dl (3.4-5.0)
[2020-07-18 08:14] LABS: CREATININE 1.5 mg/dL (0.55-1.3)
[2020-07-18 08:15] LABS: PHOSPHOROUS 4.7 mg/dL (2.5-4.9)
[2020-07-18 08:16] LABS: BILIRUBIN,TOTAL 0.8 mg/dL (0.2-1); TOT PROT 6.6 g/dl (6.4-8.2)
[2020-07-18] MEDS ORDERED: cefTRIAXone SODIUM 1 GM VIAL ONE (10:13)
[2020-07-18] MEDS ORDERED: DEXTROSE 5%-WATER - 50 ML IVPB ONE (10:13)
[2020-07-18] MEDS: LIDOCAINE 5% TOPICAL PATCH TP SCH (10:19)
[2020-07-18] MEDS: APIXABAN 5 MG TABLET PO SCH ×2 (10:22→20:59)
[2020-07-18] MEDS: CLOPIDOGREL BISULFATE 75 MG TABLET (FP) PO SCH (10:22)
[2020-07-18] MEDS: CEFTRIAXONE 1 GM in DEXTROSE 5%-WATER - 50 ML IVPB SCH (10:24)
[2020-07-18] MEDS ORDERED: morphine SULFATE 4 MG/ML VIAL IVPUSH ONE ×2 (10:45→20:30)
[2020-07-18] MEDS: oxyCODONE HCL 5 MG TABLET PO PRN ×2 (12:31→22:05)
[2020-07-18] MEDS: SODIUM CHLORIDE 1,000 ML IV SCH (14:57)
[2020-07-18] MEDS: FUROSEMIDE 40 MG/4 ML INJECTABLE VIAL IVPUSH SCH (15:57)
[2020-07-18] MEDS: LIDOCAINE PATCH REMOVAL MC SCH (22:41)
[2020-07-19] MEDS: INSULIN SLIDING SCALE (NOVOLOG) 1 VIAL SQ SCH ×3 (06:31→16:17)
[2020-07-19] MEDS: CYCLOBENZAPRINE HCL 5 MG TABLET PO PRN ×2 (06:31→20:59)
[2020-07-19] MEDS: ACETAMINOPHEN 325 MG TABLET (FP) PO PRN ×2 (06:32→22:51)
[2020-07-19] MEDS: oxyCODONE HCL 5 MG TABLET PO PRN ×2 (06:34→22:50)
[2020-07-19 07:40] LABS: HEMOGLOBIN 11.5 GM/dL (10.7-15.3); MCH 31.4 pg (25.7-33.7); MCHC 32.9 g/dl (32.0-36.0); MEAN CELL VOLUME 95.4 fl (80-96); MEAN PLT VOLUME 9.2 fl (7.5-11.1); PLATELET COUNT 185 K/MM3 (134-434); RBC 3.67 M/mm3 (3.60-5.2); RDW 14.2 % (11.6-15.6)
[2020-07-19 07:58] LABS: POTASSIUM 4.1 mmol/L (3.5-5.1)
[2020-07-19 08:02] LABS: BLOOD UREA NITROGEN 54.5 mg/dL (7-18)
[2020-07-19 08:06] LABS: CREATININE 1.5 mg/dL (0.55-1.3)
[2020-07-19] MEDS: CLOPIDOGREL BISULFATE 75 MG TABLET (FP) PO SCH (10:01)
[2020-07-19] MEDS: APIXABAN 5 MG TABLET PO SCH ×2 (10:01→20:59)
[2020-07-19] MEDS: FUROSEMIDE 40 MG/4 ML INJECTABLE VIAL IVPUSH SCH (10:01)
[2020-07-19] MEDS: LIDOCAINE 5% TOPICAL PATCH TP SCH (10:03)
[2020-07-19] MEDS: LIDOCAINE PATCH REMOVAL MC SCH (20:59)
[2020-07-20] MEDS: CYCLOBENZAPRINE HCL 5 MG TABLET PO PRN ×2 (05:32→21:30)
[2020-07-20] MEDS: INSULIN SLIDING SCALE (NOVOLOG) 1 VIAL SQ SCH ×3 (06:15→16:56)
[2020-07-20] MEDS: oxyCODONE HCL 5 MG TABLET PO PRN ×2 (06:21→21:30)
[2020-07-20 08:23] LABS: HEMATOCRIT 35.3 % (32.4-45.2); HEMOGLOBIN 11.6 GM/dL (10.7-15.3); MCH 31.5 pg (25.7-33.7); MCHC 32.8 g/dl (32.0-36.0); MEAN CELL VOLUME 95.9 fl (80-96); MEAN PLT VOLUME 9.5 fl (7.5-11.1); PLATELET COUNT 187 K/MM3 (134-434); RBC 3.67 M/mm3 (3.60-5.2); RDW 14.4 % (11.6-15.6); WHITE BLOOD COUNT 6.9 K/mm3 (4.0-10.0)
[2020-07-20 08:31] LABS: POTASSIUM 3.9 mmol/L (3.5-5.1)
[2020-07-20 08:46] LABS: BLOOD UREA NITROGEN 58.1 mg/dL (7-18); CALCIUM 8.8 mg/dL (8.5-10.1)
[2020-07-20 08:50] LABS: CREATININE 1.5 mg/dL (0.55-1.3)
[2020-07-20] MEDS: FUROSEMIDE 40 MG/4 ML INJECTABLE VIAL IVPUSH SCH ×2 (09:53→17:41)
[2020-07-20] MEDS: LIDOCAINE 5% TOPICAL PATCH TP SCH (09:53)
[2020-07-20] MEDS: CLOPIDOGREL BISULFATE 75 MG TABLET (FP) PO SCH (09:53)
[2020-07-20] MEDS: APIXABAN 5 MG TABLET PO SCH ×2 (09:56→21:30)
[2020-07-20] MEDS ORDERED: ALBUTEROL SO4 0.083% IH SOL 2.5 MG/3 ML VIAL.NEB. NEB ONE (16:57)
[2020-07-20] MEDS ORDERED: INSULIN (NOVOLOG) ASPART 100 UNITS/ML 10ML VIAL ONE (19:56)
[2020-07-20] MEDS: LIDOCAINE PATCH REMOVAL MC SCH (21:31)
[2020-07-21] MEDS: oxyCODONE HCL 5 MG TABLET PO PRN ×3 (05:23→20:29)
[2020-07-21] MEDS: CYCLOBENZAPRINE HCL 5 MG TABLET PO PRN (05:23)
[2020-07-21] MEDS: FUROSEMIDE 40 MG/4 ML INJECTABLE VIAL IVPUSH SCH ×2 (05:23→14:39)
[2020-07-21] MEDS: INSULIN SLIDING SCALE (NOVOLOG) 1 VIAL SQ SCH ×3 (06:00→16:56)
[2020-07-21 08:12] LABS: HEMATOCRIT 35.3 % (32.4-45.2); HEMOGLOBIN 11.5 GM/dL (10.7-15.3); MCH 31.3 pg (25.7-33.7); MCHC 32.5 g/dl (32.0-36.0); MEAN CELL VOLUME 96.1 fl (80-96); MEAN PLT VOLUME 9.1 fl (7.5-11.1); PLATELET COUNT 178 K/MM3 (134-434); RBC 3.68 M/mm3 (3.60-5.2); RDW 14.7 % (11.6-15.6); WHITE BLOOD COUNT 6.6 K/mm3 (4.0-10.0)
[2020-07-21 08:40] LABS: POTASSIUM 3.8 mmol/L (3.5-5.1)
[2020-07-21 08:46] LABS: CALCIUM 8.7 mg/dL (8.5-10.1)
[2020-07-21 08:47] LABS: BLOOD UREA NITROGEN 48.6 mg/dL (7-18)
[2020-07-21 08:50] LABS: CREATININE 1.3 mg/dL (0.55-1.3)
[2020-07-21] MEDS: SERTRALINE HCL 25 MG TABLET (FP) PO SCH (10:13)
[2020-07-21] MEDS: CLOPIDOGREL BISULFATE 75 MG TABLET (FP) PO SCH (10:13)
[2020-07-21] MEDS: LIDOCAINE 5% TOPICAL PATCH TP SCH (10:13)
[2020-07-21] MEDS: APIXABAN 5 MG TABLET PO SCH ×2 (10:13→21:54)
[2020-07-21] MEDS ORDERED: INSULIN (NOVOLOG) ASPART 100 UNITS/ML 10ML VIAL ONE (10:21)
[2020-07-21] MEDS ORDERED: POTASSIUM CHLORIDE TABS 20 MEQ TABLET.ER (FP) PO ONE (10:31)
[2020-07-21] MEDS ORDERED: METOPROLOL TARTRATE 25 MG TABLET (FP) PO ONE (15:03)
[2020-07-21] MEDS: ATORVASTATIN CA 40 MG TABLET (FP) PO SCH (21:54)
[2020-07-21] MEDS: LIDOCAINE PATCH REMOVAL MC SCH (21:54)
[2020-07-22] MEDS: FUROSEMIDE 40 MG/4 ML INJECTABLE VIAL IVPUSH SCH ×2 (05:25→16:48)
[2020-07-22 08:59] LABS: BASO % 0.5 % (0-2.0); EOS % 2.6 % (0-4.5); HEMATOCRIT 35.2 % (32.4-45.2); HEMOGLOBIN 11.8 GM/dL (10.7-15.3); LYMPH % 12.5 % (8-40); MCH 31.8 pg (25.7-33.7); MCHC 33.5 g/dl (32.0-36.0); MEAN CELL VOLUME 94.9 fl (80-96); MEAN PLT VOLUME 8.9 fl (7.5-11.1); MONO % 11.7 % (3.8-10.2); NEUT % 72.7 % (42.8-82.8); PLATELET COUNT 190 K/MM3 (134-434); RBC 3.71 M/mm3 (3.60-5.2); RDW 14.7 % (11.6-15.6); WHITE BLOOD COUNT 6.8 K/mm3 (4.0-10.0)
[2020-07-22 09:27] LABS: POTASSIUM 4.5 mmol/L (3.5-5.1)
[2020-07-22 09:31] LABS: ALBUMIN 3.3 g/dl (3.4-5.0); BLOOD UREA NITROGEN 48.1 mg/dL (7-18); CALCIUM 8.9 mg/dL (8.5-10.1); MAGNESIUM 2.1 mg/dL (1.8-2.4)
[2020-07-22 09:34] LABS: CREATININE 1.3 mg/dL (0.55-1.3)
[2020-07-22 09:35] LABS: PHOSPHOROUS 3.6 mg/dL (2.5-4.9)
[2020-07-22 09:36] LABS: BILIRUBIN,TOTAL 0.8 mg/dL (0.2-1); TOT PROT 6.5 g/dl (6.4-8.2)
[2020-07-22] MEDS: CLOPIDOGREL BISULFATE 75 MG TABLET (FP) PO SCH (10:00)
[2020-07-22] MEDS: oxyCODONE HCL 5 MG TABLET PO PRN (10:00)
[2020-07-22] MEDS: LIDOCAINE 5% TOPICAL PATCH TP SCH (10:01)
[2020-07-22] MEDS: APIXABAN 5 MG TABLET PO SCH ×2 (10:01→21:32)
[2020-07-22] MEDS: SERTRALINE HCL 25 MG TABLET (FP) PO SCH (10:01)
[2020-07-22] MEDS ORDERED: METOLAZONE 5 MG TABLET PO ONE (13:30)
[2020-07-22] MEDS ORDERED: FUROSEMIDE 40 MG/4 ML INJECTABLE VIAL IVPUSH ONE (14:35)
[2020-07-22] MEDS ORDERED: oxyCODONE HCL 5 MG TABLET PO PRN (14:35)
[2020-07-22] MEDS ORDERED: PT OWN MED DRAWER 7, Y5N ONE (21:29)
[2020-07-22] MEDS: ATORVASTATIN CA 40 MG TABLET (FP) PO SCH (21:31)
[2020-07-22] MEDS: LIDOCAINE PATCH REMOVAL MC SCH (21:34)
[2020-07-23] MEDS: ACETAMINOPHEN 325 MG TABLET (FP) PO PRN ×2 (03:08→12:09)
[2020-07-23] MEDS: FUROSEMIDE 40 MG/4 ML INJECTABLE VIAL IVPUSH SCH ×2 (05:39→13:02)
[2020-07-23 07:25] LABS: BASO % 0.3 % (0-2.0); EOS % 0.9 % (0-4.5); HEMATOCRIT 36.9 % (32.4-45.2); HEMOGLOBIN 12.3 GM/dL (10.7-15.3); LYMPH % 12.7 % (8-40); MCH 31.6 pg (25.7-33.7); MCHC 33.2 g/dl (32.0-36.0); NEUT % 74.1 % (42.8-82.8); PLATELET COUNT 184 K/MM3 (134-434); RBC 3.88 M/mm3 (3.60-5.2); RDW 14.2 % (11.6-15.6); WHITE BLOOD COUNT 8.8 K/mm3 (4.0-10.0)
[2020-07-23 07:46] LABS: POTASSIUM 4.8 mmol/L (3.5-5.1)
[2020-07-23 07:52] LABS: ALBUMIN 3.4 g/dl (3.4-5.0); CALCIUM 9.4 mg/dL (8.5-10.1); MAGNESIUM 2.3 mg/dL (1.8-2.4)
[2020-07-23 07:55] LABS: CREATININE 1.4 mg/dL (0.55-1.3); PHOSPHOROUS 3.6 mg/dL (2.5-4.9)
[2020-07-23 07:57] LABS: BILIRUBIN,TOTAL 0.8 mg/dL (0.2-1); TOT PROT 6.8 g/dl (6.4-8.2)
[2020-07-23] MEDS ORDERED: PT OWN MED DRAWER 7, Y5N ONE (10:09)
[2020-07-23] MEDS: CLOPIDOGREL BISULFATE 75 MG TABLET (FP) PO SCH (10:13)
[2020-07-23] MEDS: APIXABAN 5 MG TABLET PO SCH ×2 (10:13→22:32)
[2020-07-23] MEDS: LIDOCAINE 5% TOPICAL PATCH TP SCH (10:14)
[2020-07-23] MEDS: SERTRALINE HCL 25 MG TABLET (FP) PO SCH (12:09)
[2020-07-23] MEDS: LIDOCAINE PATCH REMOVAL MC SCH (22:32)
[2020-07-23] MEDS: ATORVASTATIN CA 40 MG TABLET (FP) PO SCH (22:32)
[2020-07-23] MEDS: CYCLOBENZAPRINE HCL 5 MG TABLET PO PRN (22:32)
[2020-07-24 07:03] LABS: BASO % 0.4 % (0-2.0); EOS % 0.4 % (0-4.5); HEMATOCRIT 36.3 % (32.4-45.2); HEMOGLOBIN 12.1 GM/dL (10.7-15.3); LYMPH % 12.5 % (8-40); MCH 31.4 pg (25.7-33.7); MCHC 33.3 g/dl (32.0-36.0); MEAN CELL VOLUME 94.2 fl (80-96); MONO % 12.5 % (3.8-10.2); NEUT % 74.2 % (42.8-82.8); PLATELET COUNT 168 K/MM3 (134-434); RBC 3.85 M/mm3 (3.60-5.2); RDW 14.8 % (11.6-15.6); WHITE BLOOD COUNT 9.6 K/mm3 (4.0-10.0)
[2020-07-24] MEDS: FUROSEMIDE 40 MG/4 ML INJECTABLE VIAL IVPUSH SCH ×2 (07:16→14:26)
[2020-07-24 07:32] LABS: POTASSIUM 4.4 mmol/L (3.5-5.1)
[2020-07-24 07:46] LABS: ALBUMIN 3.4 g/dl (3.4-5.0); CALCIUM 9.2 mg/dL (8.5-10.1)
[2020-07-24 07:47] LABS: MAGNESIUM 2.1 mg/dL (1.8-2.4)
[2020-07-24 07:48] LABS: BLOOD UREA NITROGEN 53.5 mg/dL (7-18)
[2020-07-24 07:49] LABS: BILIRUBIN,TOTAL 1.1 mg/dL (0.2-1); CREATININE 1.3 mg/dL (0.55-1.3); PHOSPHOROUS 4.3 mg/dL (2.5-4.9); TOT PROT 6.5 g/dl (6.4-8.2)
[2020-07-24] MEDS ORDERED: METOLAZONE 5 MG TABLET PO ONE ×2 (09:21→13:30)
[2020-07-24] MEDS ORDERED: TORSEMIDE 20 MG TABLET (FP) PO ONE (09:25)
[2020-07-24] MEDS: LIDOCAINE 5% TOPICAL PATCH TP SCH (12:43)
[2020-07-24] MEDS: CLOPIDOGREL BISULFATE 75 MG TABLET (FP) PO SCH (12:43)
[2020-07-24] MEDS: APIXABAN 5 MG TABLET PO SCH ×2 (12:43→22:13)
[2020-07-24] MEDS ORDERED: PT OWN MED DRAWER 7, Y5N ONE (13:42)
[2020-07-24 16:47] VITALS: BMI 32.5
[2020-07-24] MEDS: ACETAMINOPHEN 325 MG TABLET (FP) PO PRN (22:13)
[2020-07-24] MEDS: ATORVASTATIN CA 40 MG TABLET (FP) PO SCH (22:13)
[2020-07-25 06:36] LABS: BASO % 0.3 % (0-2.0); EOS % 0.1 % (0-4.5); HEMATOCRIT 37.9 % (32.4-45.2); HEMOGLOBIN 12.2 GM/dL (10.7-15.3); LYMPH % 13.9 % (8-40); MCH 30.6 pg (25.7-33.7); MCHC 32.2 g/dl (32.0-36.0); MEAN PLT VOLUME 9.2 fl (7.5-11.1); MONO % 12.1 % (3.8-10.2); NEUT % 73.6 % (42.8-82.8); PLATELET COUNT 152 K/MM3 (134-434); RBC 3.99 M/mm3 (3.60-5.2); RDW 14.7 % (11.6-15.6); WHITE BLOOD COUNT 9.1 K/mm3 (4.0-10.0)
[2020-07-25] MEDS: LIDOCAINE PATCH REMOVAL MC SCH ×2 (06:36→22:55)
[2020-07-25] MEDS: FUROSEMIDE 40 MG/4 ML INJECTABLE VIAL IVPUSH SCH (06:44)
[2020-07-25 06:50] LABS: POTASSIUM 4.3 mmol/L (3.5-5.1)
[2020-07-25 06:53] LABS: CALCIUM 9.4 mg/dL (8.5-10.1)
[2020-07-25 06:54] LABS: ALBUMIN 3.3 g/dl (3.4-5.0); BLOOD UREA NITROGEN 57.1 mg/dL (7-18); MAGNESIUM 2.4 mg/dL (1.8-2.4)
[2020-07-25 06:57] LABS: CREATININE 1.7 mg/dL (0.55-1.3); PHOSPHOROUS 5.3 mg/dL (2.5-4.9)
[2020-07-25 06:59] LABS: BILIRUBIN,TOTAL 1.7 mg/dL (0.2-1); TOT PROT 6.5 g/dl (6.4-8.2)
[2020-07-25 08:09] LABS: CARCINOEMBRYONIC ANTIGEN 2.6 ng/mL (0.0-4.7)
[2020-07-25] MEDS ORDERED: PT OWN MED DRAWER 7, Y5N ONE (09:32)
[2020-07-25] MEDS: LIDOCAINE 5% TOPICAL PATCH TP SCH (10:37)
[2020-07-25] MEDS: FUROSEMIDE 40 MG TABLET (FP) PO SCH (10:37)
[2020-07-25] MEDS: APIXABAN 2.5 MG TABLET PO SCH ×2 (10:37→22:54)
[2020-07-25] MEDS: MULTIVITAMINS (DAILY MVI) TABLET (FP) PO SCH (10:38)
[2020-07-25] MEDS: CLOPIDOGREL BISULFATE 75 MG TABLET (FP) PO SCH (10:38)
[2020-07-25] MEDS: ACETAMINOPHEN 325 MG TABLET (FP) PO PRN ×2 (10:38→22:52)
[2020-07-25] MEDS: dilTIAZem HCL 30 MG TABLET PO SCH ×2 (13:08→22:52)
[2020-07-25] MEDS: ATORVASTATIN CA 40 MG TABLET (FP) PO SCH (22:54)
[2020-07-26] MEDS: ACETAMINOPHEN 325 MG TABLET (FP) PO PRN (06:41)
[2020-07-26] MEDS: dilTIAZem HCL 30 MG TABLET PO SCH (06:42)
[2020-07-26 07:52] LABS: BASO % 0.4 % (0-2.0); EOS % 1.2 % (0-4.5); HEMATOCRIT 33.6 % (32.4-45.2); HEMOGLOBIN 11.1 GM/dL (10.7-15.3); LYMPH % 12.6 % (8-40); MCH 30.9 pg (25.7-33.7); MEAN CELL VOLUME 93.9 fl (80-96); MEAN PLT VOLUME 9.3 fl (7.5-11.1); MONO % 14.2 % (3.8-10.2); NEUT % 71.6 % (42.8-82.8); PLATELET COUNT 144 K/MM3 (134-434); RBC 3.58 M/mm3 (3.60-5.2); RDW 14.6 % (11.6-15.6); WHITE BLOOD COUNT 6.4 K/mm3 (4.0-10.0)
[2020-07-26 07:55] LABS: INR 3.56 (0.83-1.09); PROTHROMBIN TIME (PATIENT) 41.5 SEC (9.7-13.0)
[2020-07-26 08:15] LABS: POTASSIUM 3.4 mmol/L (3.5-5.1)
[2020-07-26 08:20] LABS: CALCIUM 8.6 mg/dL (8.5-10.1)
[2020-07-26 08:21] LABS: BLOOD UREA NITROGEN 56.9 mg/dL (7-18); MAGNESIUM 2.3 mg/dL (1.8-2.4)
[2020-07-26 08:24] LABS: CREATININE 1.5 mg/dL (0.55-1.3)
[2020-07-26 08:43] LABS: BILIRUBIN,DIRECT 0.4 mg/dL (0.0-0.2)
[2020-07-26 08:45] LABS: BILIRUBIN,TOTAL 1.2 mg/dL (0.2-1); TOT PROT 5.8 g/dl (6.4-8.2)
[2020-07-26] MEDS: CLOPIDOGREL BISULFATE 75 MG TABLET (FP) PO SCH (10:21)
[2020-07-26] MEDS: MULTIVITAMINS (DAILY MVI) TABLET (FP) PO SCH (10:21)
[2020-07-26] MEDS: FUROSEMIDE 40 MG TABLET (FP) PO SCH (10:21)
[2020-07-26] MEDS: LIDOCAINE 5% TOPICAL PATCH TP SCH (10:21)
[2020-07-26] MEDS: APIXABAN 2.5 MG TABLET PO SCH ×2 (10:21→22:10)
[2020-07-26 11:27] LABS: URIC ACID 15.1 mg/dL (2.6-7.2)
[2020-07-26] MEDS: ALLOPURINOL 100 MG TABLET (FP) PO SCH (14:54)
[2020-07-26] MEDS ORDERED: TRIMETHOBENZAMIDE HCL 200MG/2ML INJ IM PRN (16:55)
[2020-07-26] MEDS ORDERED: PT OWN MED DRAWER 7, Y5N ONE (19:50)
[2020-07-26] MEDS: LIDOCAINE PATCH REMOVAL MC SCH (22:10)
[2020-07-27] MEDS: LIDOCAINE PATCH REMOVAL MC SCH ×2 (03:49→21:14)
[2020-07-27] MEDS ORDERED: LIDOCAINE 5% TOPICAL PATCH TP ONE (04:30)
[2020-07-27 09:28] LABS: POTASSIUM 3.1 mmol/L (3.5-5.1)
[2020-07-27 09:32] LABS: BLOOD UREA NITROGEN 43.6 mg/dL (7-18); MAGNESIUM 2.1 mg/dL (1.8-2.4)
[2020-07-27 09:34] LABS: BILIRUBIN,DIRECT 0.4 mg/dL (0.0-0.2); CREATININE 1.2 mg/dL (0.55-1.3)
[2020-07-27 09:35] LABS: PHOSPHOROUS 3.1 mg/dL (2.5-4.9)
[2020-07-27 09:36] LABS: BILIRUBIN,TOTAL 0.9 mg/dL (0.2-1); TOT PROT 5.9 g/dl (6.4-8.2)
[2020-07-27] MEDS ORDERED: POTASSIUM CHLORIDE TABS 20 MEQ TABLET.ER (FP) PO ONE ×2 (12:00→17:30)
[2020-07-27] MEDS: APIXABAN 2.5 MG TABLET PO SCH (12:19)
[2020-07-27] MEDS ORDERED: PT OWN MED DRAWER 7, Y5N ONE (12:27)
[2020-07-27] MEDS: CLOPIDOGREL BISULFATE 75 MG TABLET (FP) PO SCH (12:29)
[2020-07-27] MEDS: MULTIVITAMINS (DAILY MVI) TABLET (FP) PO SCH (12:30)
[2020-07-27] MEDS: FUROSEMIDE 40 MG TABLET (FP) PO SCH (12:30)
[2020-07-27] MEDS: LIDOCAINE 5% TOPICAL PATCH TP SCH (12:31)
[2020-07-27] MEDS: ALLOPURINOL 100 MG TABLET (FP) PO SCH (12:32)
[2020-07-27] MEDS ORDERED: LIDOCAINE PATCH REMOVAL MC ONE (16:30)
[2020-07-28 00:06] LABS: HEP B CORE AB, TOT Negative (Negative)
[2020-07-28 06:50] LABS: BASO % 0.5 % (0-2.0); EOS % 2.7 % (0-4.5); HEMATOCRIT 33.4 % (32.4-45.2); LYMPH % 15.4 % (8-40); MCH 30.9 pg (25.7-33.7); MCHC 32.9 g/dl (32.0-36.0); MEAN CELL VOLUME 93.8 fl (80-96); MEAN PLT VOLUME 8.7 fl (7.5-11.1); MONO % 15.8 % (3.8-10.2); NEUT % 65.6 % (42.8-82.8); PLATELET COUNT 141 K/MM3 (134-434); RBC 3.56 M/mm3 (3.60-5.2); RDW 14.7 % (11.6-15.6); WHITE BLOOD COUNT 6.5 K/mm3 (4.0-10.0)
[2020-07-28 07:07] LABS: INR 1.64 (0.83-1.09); PROTHROMBIN TIME (PATIENT) 19.6 SEC (9.7-13.0)
[2020-07-28 07:20] LABS: POTASSIUM 3.5 mmol/L (3.5-5.1)
[2020-07-28 07:23] LABS: ALBUMIN 2.9 g/dl (3.4-5.0); CALCIUM 9.2 mg/dL (8.5-10.1)
[2020-07-28 07:24] LABS: BLOOD UREA NITROGEN 33.8 mg/dL (7-18)
[2020-07-28 07:27] LABS: BILIRUBIN,DIRECT 0.3 mg/dL (0.0-0.2); CREATININE 1.1 mg/dL (0.55-1.3)
[2020-07-28 07:28] LABS: BILIRUBIN,TOTAL 0.9 mg/dL (0.2-1); TOT PROT 5.6 g/dl (6.4-8.2)
[2020-07-28] MEDS ORDERED: PT OWN MED DRAWER 7, Y5N ONE (09:53)
[2020-07-28] MEDS: ALLOPURINOL 100 MG TABLET (FP) PO SCH (10:46)
[2020-07-28] MEDS: MULTIVITAMINS (DAILY MVI) TABLET (FP) PO SCH (10:47)
[2020-07-28] MEDS: CLOPIDOGREL BISULFATE 75 MG TABLET (FP) PO SCH (10:48)
[2020-07-28] MEDS: FUROSEMIDE 40 MG TABLET (FP) PO SCH (10:48)
[2020-07-28] MEDS: APIXABAN 5 MG TABLET PO SCH ×2 (10:49→21:58)
[2020-07-28] MEDS: LIDOCAINE 5% TOPICAL PATCH TP SCH (10:49)
[2020-07-28] MEDS ORDERED: ALLOPURINOL 300 MG TABLET (FP) PO SCH (13:18)
[2020-07-28] MEDS ORDERED: POTASSIUM CHLORIDE TABS 20 MEQ TABLET.ER (FP) PO ONE (16:33)
[2020-07-28] MEDS: LIDOCAINE PATCH REMOVAL MC SCH (21:58)
[2020-07-29 06:49] LABS: INR 1.89 (0.83-1.09); PROTHROMBIN TIME (PATIENT) 22.8 SEC (9.7-13.0)
[2020-07-29 07:00] LABS: POTASSIUM 3.2 mmol/L (3.5-5.1)
[2020-07-29 07:03] LABS: BLOOD UREA NITROGEN 27.9 mg/dL (7-18); CALCIUM 9.3 mg/dL (8.5-10.1)
[2020-07-29] MEDS: APIXABAN 5 MG TABLET PO SCH (09:15)
[2020-07-29] MEDS: FUROSEMIDE 40 MG TABLET (FP) PO SCH (09:15)
[2020-07-29] MEDS: MULTIVITAMINS (DAILY MVI) TABLET (FP) PO SCH (09:15)
[2020-07-29] MEDS: LIDOCAINE 5% TOPICAL PATCH TP SCH (09:16)
[2020-07-29] MEDS: CLOPIDOGREL BISULFATE 75 MG TABLET (FP) PO SCH (09:17)
[2020-07-29] MEDS ORDERED: POTASSIUM CHLORIDE TABS 20 MEQ TABLET.ER (FP) PO SCH (11:00)
[2020-07-29 15:00] VITALS: BP 110/65; PULSE 81; TEMP 97.5
== END 2020-07-29 19:33 | DRG 551 ==
LOC: JER 20:17 → JERBED 07-17 00:54 → J7W 07-17 15:46 → J4W 07-23 13:16 → J7W 07-26 15:48
PROVIDERS: ADMIT Internal Medicine; ATTEND Internal Medicine
DX: M48.061 Spinal stenosis, lumbar region without neurogenic claudication (principal); I50.33 Acute on chronic diastolic (congestive) heart failure; N39.0 Urinary tract infection, site not specified; I13.0 Hypertensive heart and chronic kidney disease with heart failure and stage 1 through stage 4 chronic kidney disease, or unspecified chronic kidney disease; N17.9 Acute kidney failure, unspecified; Z90.5 Acquired absence of kidney; R63.4 Abnormal weight loss; K86.89 Other specified diseases of pancreas; E78.5 Hyperlipidemia, unspecified; I25.10 Atherosclerotic heart disease of native coronary artery without angina pectoris; Z95.5 Presence of coronary angioplasty implant and graft; N18.9 Chronic kidney disease, unspecified; R74.01 Elevation of levels of liver transaminase levels; I48.0 Paroxysmal atrial fibrillation; F32.9 Major depressive disorder, single episode, unspecified; R73.9 Hyperglycemia, unspecified
CPT/HCPCS: 36415; 70450-TC; 71045-TC-FY; 71250-TC; 72128-TC; 72131-TC; 72148-TC; 74176-TC; 74181-TC; 76775-TC; 80048; 80053; 80076; 81003; 82378; 82565; 82728; 82962; 83036; 83516; 83550; 83735; 83970; 84100; 84156; 84300; 84540; 84550; 85025; 85027; 85610; 86038; 86301; 86704; 86706; 86707; 86708; 86709; 86803; 87086; 87340; 93005; 93010; 93306-TC; 94640; 97116-GP; 97162-GP; 99285-25; C9803; J0131; U0003

== ENCOUNTER 2020-10-10 12:50 | Inpatient (IN) | payer OTHER, MEDICARE ==
[2020-10-10 14:21] LABS: BASO % 3.5 % (0-2.0); EOS % 0.1 % (0-4.5); HEMATOCRIT 37.6 % (32.4-45.2); HEMOGLOBIN 11.7 GM/dL (10.7-15.3); LYMPH % 4.9 % (8-40); MCH 26.8 pg (25.7-33.7); MEAN CELL VOLUME 86.3 fl (80-96); MEAN PLT VOLUME 9.2 fl (7.5-11.1); MONO % 9.7 % (3.8-10.2); NEUT % 81.8 % (42.8-82.8); PLATELET COUNT 236 K/MM3 (134-434); RBC 4.36 M/mm3 (3.60-5.2); RDW 19.2 % (11.6-15.6); WHITE BLOOD COUNT 11.7 K/mm3 (4.0-10.0)
[2020-10-10 14:32] LABS: INR 3.21 (0.83-1.09); PROTHROMBIN TIME (PATIENT) 38.2 SEC (9.7-13.0)
[2020-10-10 14:33] LABS: CHLORIDE 102 mmol/L (98-107); SODIUM 136 mmol/L (136-145)
[2020-10-10 14:36] LABS: ALBUMIN 3.4 g/dl (3.4-5.0); BLOOD UREA NITROGEN 74.8 mg/dL (7-18); CALCIUM 9.3 mg/dL (8.5-10.1)
[2020-10-10 14:37] LABS: CO2 26 mmol/L (21-32); GLUCOSE,RANDOM 159 mg/dL (74-106); LIPASE 227 U/L (73-393); MAGNESIUM 2.5 mg/dL (1.8-2.4)
[2020-10-10 14:39] LABS: SGOT/AST 150 U/L (15-37); SGPT/ALT 133 U/L (13-61)
[2020-10-10 14:40] LABS: CREATININE 2.4 mg/dL (0.55-1.3); LACTIC ACID 2.3 mmol/L (0.4-2.0); PHOSPHOROUS 5.7 mg/dL (2.5-4.9)
[2020-10-10 14:41] LABS: BILIRUBIN,TOTAL 1.5 mg/dL (0.2-1); TOT PROT 6.8 g/dl (6.4-8.2)
[2020-10-10 14:42] LABS: ALK PHOS 92 U/L (45-117); N-TERMINAL BNP 8250.6 pg/ml (5-450)
[2020-10-10 14:52] LABS: ANION GAP 8 MMOL/L (8-16)
[2020-10-10] MEDS ORDERED: FUROSEMIDE 40 MG/4 ML INJECTABLE VIAL IVPUSH ONE (14:58)
[2020-10-10] MEDS ORDERED: FUROSEMIDE 40 MG/4 ML INJECTABLE VIAL ONE (15:23)
[2020-10-10 15:47] LABS: ANISOCYTOSIS 1+; MACROCYTOSIS 0; PLATELET ESTIMATE NORMAL
[2020-10-10 16:33] LABS: ALBUMIN 3.4 g/dl (3.4-5.0); BLOOD UREA NITROGEN 76.5 mg/dL (7-18); CALCIUM 9.7 mg/dL (8.5-10.1)
[2020-10-10 16:34] LABS: MAGNESIUM 2.7 mg/dL (1.8-2.4)
[2020-10-10 16:37] LABS: CREATININE 2.3 mg/dL (0.55-1.3); PHOSPHOROUS 5.7 mg/dL (2.5-4.9)
[2020-10-10 16:38] LABS: BILIRUBIN,TOTAL 1.3 mg/dL (0.2-1)
[2020-10-10 16:39] LABS: TOT PROT 6.7 g/dl (6.4-8.2)
[2020-10-10 16:46] LABS: EPI CELLS >36 /uL (0-25.1); HYALINE CASTS 2 /uL (0-3.1); URINE APPEARANCE CLEAR; URINE BACTERIA 241 /uL (0-1359); URINE BILIRUBIN NEGATIVE (NEGATIVE); URINE COLOR YELLOW; URINE GLUCOSE (UA) NEGATIVE (NEGATIVE); URINE KETONE NEGATIVE (NEGATIVE); URINE LEUK ESTERASE 1+ (NEGATIVE); URINE NITRITE NEGATIVE (NEGATIVE); URINE PROTEIN TRACE (NEGATIVE); URINE RBC 5 /uL (0-23.9); URINE WBC 38 /uL (0-25.8)
[2020-10-10] MEDS ORDERED: CEFTRIAXONE 1 GM in DEXTROSE 5%-WATER - 100 ML IVPB ONE (17:20)
[2020-10-10] MEDS ORDERED: CEFTRIAXONE 1 GM/50 ML BAG ONE (18:32)
[2020-10-10] MEDS ORDERED: VANCOMYCIN 1 GM in D5W (PRE-DOCKED) 1,000 MG/250 ML IVPB ONE (19:19)
[2020-10-10] MEDS ORDERED: VANCOMYCIN 1 GRAM (PRE-DOCKED) 1,000 MG/250 ML BAG IVPB ONE (19:44)
[2020-10-10 21:48] LABS: MAGNESIUM 2.6 mg/dL (1.8-2.4)
[2020-10-10 21:52] LABS: PHOSPHOROUS 5.5 mg/dL (2.5-4.9)
[2020-10-10 22:36] LABS: BILIRUBIN,DIRECT 0.6 mg/dL (0.0-0.2)
[2020-10-11] MEDS: MELATONIN 5 MG TABLETS PO ONE ×2 (03:50→04:50)
[2020-10-11 06:01] LABS: BASO % 0.5 % (0-2.0); EOS % 0.9 % (0-4.5); HEMATOCRIT 33.4 % (32.4-45.2); HEMOGLOBIN 10.6 GM/dL (10.7-15.3); LYMPH % 9.3 % (8-40); MCH 27.1 pg (25.7-33.7); MCHC 31.8 g/dl (32.0-36.0); MEAN CELL VOLUME 85.1 fl (80-96); MEAN PLT VOLUME 9.1 fl (7.5-11.1); MONO % 13.9 % (3.8-10.2); NEUT % 75.4 % (42.8-82.8); PLATELET COUNT 190 K/MM3 (134-434); RBC 3.92 M/mm3 (3.60-5.2); RDW 18.9 % (11.6-15.6); WHITE BLOOD COUNT 9.6 K/mm3 (4.0-10.0)
[2020-10-11 06:21] LABS: ALBUMIN 3.2 g/dl (3.4-5.0); CALCIUM 9.2 mg/dL (8.5-10.1); MAGNESIUM 2.4 mg/dL (1.8-2.4)
[2020-10-11 06:24] LABS: CREATININE 2.1 mg/dL (0.55-1.3); PHOSPHOROUS 5.2 mg/dL (2.5-4.9)
[2020-10-11 06:26] LABS: BILIRUBIN,TOTAL 1.1 mg/dL (0.2-1); TOT PROT 6.1 g/dl (6.4-8.2)
[2020-10-11] MEDS ORDERED: APIXABAN 5 MG TABLET PO SCH (10:00)
[2020-10-11] MEDS ORDERED: CLOPIDOGREL BISULFATE 75 MG TABLET (FP) PO SCH (10:00)
[2020-10-11] MEDS ORDERED: PHYTONADIONE 10 MG/1 ML AMP IVPB ONE (11:39)
[2020-10-11] MEDS: FUROSEMIDE 40 MG/4 ML INJECTABLE VIAL IVPUSH SCH (12:56)
[2020-10-11] MEDS: POTASSIUM CHLORIDE TABS 20 MEQ TABLET.ER (FP) PO SCH (12:56)
[2020-10-11] MEDS ORDERED: cefTRIAXone SODIUM 1 GM VIAL ONE (15:34)
[2020-10-11] MEDS ORDERED: DEXTROSE 5%-WATER - 50 ML IVPB ONE ×2 (15:35→17:43)
[2020-10-11] MEDS: CEFTRIAXONE 1 GM in DEXTROSE 5%-WATER - 50 ML IVPB SCH ×2 (15:38→15:40)
[2020-10-11] MEDS ORDERED: CEFTRIAXONE 1 GM in DEXTROSE 5%-WATER - 50 ML IVPB SCH (15:45)
[2020-10-11] MEDS ORDERED: PIPERACILLIN/TAZOBACTAM 3.375 GM VIAL IVPB ONE (17:43)
[2020-10-11] MEDS: PIPERACILLIN/TAZOB 3.375 GM 3.375 GM in DEXTROSE 5%-WATER - 50 ML IVPB SCH (17:51)
[2020-10-11] MEDS ORDERED: ACETAMINOPHEN 325 MG TABLET (FP) PO ONE (20:37)
[2020-10-11] MEDS: ATORVASTATIN CA 40 MG TABLET (FP) PO SCH (21:00)
[2020-10-12] MEDS ORDERED: PIPERACILLIN/TAZOBACTAM 3.375 GM VIAL IVPB ONE ×3 (01:19→17:34)
[2020-10-12] MEDS ORDERED: DEXTROSE 5%-WATER - 50 ML IVPB ONE ×3 (01:20→17:34)
[2020-10-12] MEDS: PIPERACILLIN/TAZOB 3.375 GM 3.375 GM in DEXTROSE 5%-WATER - 50 ML IVPB SCH ×3 (02:13→17:37)
[2020-10-12] MEDS: MORPHINE SULFATE 2 MG/ML VIAL IVPUSH ONE ×2 (04:36→06:31)
[2020-10-12 09:05] LABS: BASO % 0.3 % (0-2.0); EOS % 2.5 % (0-4.5); HEMATOCRIT 33.8 % (32.4-45.2); HEMOGLOBIN 10.6 GM/dL (10.7-15.3); MCH 26.9 pg (25.7-33.7); MCHC 31.4 g/dl (32.0-36.0); MEAN CELL VOLUME 85.7 fl (80-96); MONO % 6.1 % (3.8-10.2); NEUT % 85.1 % (42.8-82.8); PLATELET COUNT 181 K/MM3 (134-434); RBC 3.94 M/mm3 (3.60-5.2); RDW 18.9 % (11.6-15.6); WHITE BLOOD COUNT 6.2 K/mm3 (4.0-10.0)
[2020-10-12 09:29] LABS: CALCIUM 8.5 mg/dL (8.5-10.1)
[2020-10-12 09:30] LABS: BLOOD UREA NITROGEN 60.4 mg/dL (7-18)
[2020-10-12 09:33] LABS: CREATININE 1.6 mg/dL (0.55-1.3)
[2020-10-12 09:34] LABS: BILIRUBIN,TOTAL 1.1 mg/dL (0.2-1); TOT PROT 5.9 g/dl (6.4-8.2)
[2020-10-12] MEDS: POTASSIUM CHLORIDE TABS 20 MEQ TABLET.ER (FP) PO SCH (11:40)
[2020-10-12] MEDS: FUROSEMIDE 40 MG/4 ML INJECTABLE VIAL IVPUSH SCH (11:41)
[2020-10-12] MEDS: ATORVASTATIN CA 40 MG TABLET (FP) PO SCH (21:50)
[2020-10-13] MEDS ORDERED: ACETAMINOPHEN 1000 MG/100 ML VIAL (NON FORMULARY) IVPB ONE (00:04)
[2020-10-13] MEDS: MELATONIN 5 MG TABLETS PO SCH ×2 (00:40→21:07)
[2020-10-13] MEDS ORDERED: PIPERACILLIN/TAZOBACTAM 3.375 GM VIAL IVPB ONE ×3 (00:57→17:11)
[2020-10-13] MEDS ORDERED: DEXTROSE 5%-WATER - 50 ML IVPB ONE ×3 (00:58→17:11)
[2020-10-13] MEDS: PIPERACILLIN/TAZOB 3.375 GM 3.375 GM in DEXTROSE 5%-WATER - 50 ML IVPB SCH ×3 (01:37→17:26)
[2020-10-13] MEDS ORDERED: PT OWN MED DRAWER 7, Y5N ONE ×2 (07:41→09:31)
[2020-10-13 08:53] LABS: BASO % 0.2 % (0-2.0); EOS % 0.4 % (0-4.5); HEMATOCRIT 35.7 % (32.4-45.2); HEMOGLOBIN 11.2 GM/dL (10.7-15.3); LYMPH % 6.9 % (8-40); MCH 26.8 pg (25.7-33.7); MCHC 31.4 g/dl (32.0-36.0); MEAN CELL VOLUME 85.5 fl (80-96); MEAN PLT VOLUME 8.9 fl (7.5-11.1); MONO % 12.1 % (3.8-10.2); NEUT % 80.4 % (42.8-82.8); PLATELET COUNT 197 K/MM3 (134-434); RBC 4.18 M/mm3 (3.60-5.2); WHITE BLOOD COUNT 9.7 K/mm3 (4.0-10.0)
[2020-10-13 09:26] LABS: CALCIUM 9.4 mg/dL (8.5-10.1)
[2020-10-13 09:27] LABS: ALBUMIN 3.2 g/dl (3.4-5.0)
[2020-10-13 09:29] LABS: CREATININE 1.6 mg/dL (0.55-1.3)
[2020-10-13 09:30] LABS: BILIRUBIN,TOTAL 1.3 mg/dL (0.2-1); TOT PROT 6.7 g/dl (6.4-8.2)
[2020-10-13] MEDS: FUROSEMIDE 40 MG TABLET (FP) PO SCH (09:36)
[2020-10-13] MEDS: POTASSIUM CHLORIDE TABS 20 MEQ TABLET.ER (FP) PO SCH (09:36)
[2020-10-13] MEDS: predniSONE 20 MG TABLET (UD) PO SCH (10:37)
[2020-10-13] MEDS: ALBUTEROL SO4 2.5/IPRATROPIUM 0.5 INH SOL 3 ML VIAL.NEB. NEB SCH ×3 (12:01→20:35)
[2020-10-13] MEDS: ATORVASTATIN CA 40 MG TABLET (FP) PO SCH (21:07)
[2020-10-14] MEDS: ALBUTEROL SO4 2.5/IPRATROPIUM 0.5 INH SOL 3 ML VIAL.NEB. NEB SCH ×6 (00:19→20:55)
[2020-10-14] MEDS ORDERED: PIPERACILLIN/TAZOBACTAM 3.375 GM VIAL IVPB ONE ×3 (02:00→17:01)
[2020-10-14] MEDS ORDERED: DEXTROSE 5%-WATER - 50 ML IVPB ONE ×3 (02:00→17:01)
[2020-10-14] MEDS: ACETAMINOPHEN 1000 MG/100 ML VIAL (NON FORMULARY) IVPB PRN ×2 (02:48→09:21)
[2020-10-14] MEDS: PIPERACILLIN/TAZOB 3.375 GM 3.375 GM in DEXTROSE 5%-WATER - 50 ML IVPB SCH ×3 (02:49→18:17)
[2020-10-14 08:35] LABS: BASO % 0.1 % (0-2.0); HEMATOCRIT 35.7 % (32.4-45.2); LYMPH % 5.5 % (8-40); MCH 26.7 pg (25.7-33.7); MCHC 30.9 g/dl (32.0-36.0); MEAN CELL VOLUME 86.6 fl (80-96); MEAN PLT VOLUME 8.9 fl (7.5-11.1); MONO % 10.4 % (3.8-10.2); PLATELET COUNT 169 K/MM3 (134-434); RBC 4.12 M/mm3 (3.60-5.2); RDW 19.3 % (11.6-15.6); WHITE BLOOD COUNT 9.5 K/mm3 (4.0-10.0)
[2020-10-14 08:52] LABS: BLOOD UREA NITROGEN 50.3 mg/dL (7-18)
[2020-10-14 08:53] LABS: ALBUMIN 3.3 g/dl (3.4-5.0); CALCIUM 9.6 mg/dL (8.5-10.1)
[2020-10-14 08:56] LABS: CREATININE 1.8 mg/dL (0.55-1.3)
[2020-10-14 08:57] LABS: BILIRUBIN,TOTAL 1.3 mg/dL (0.2-1); TOT PROT 6.6 g/dl (6.4-8.2)
[2020-10-14 08:59] LABS: INR 1.52 (0.83-1.09); PROTHROMBIN TIME (PATIENT) 18.5 SEC (9.7-13.0)
[2020-10-14] MEDS: predniSONE 20 MG TABLET (UD) PO SCH (09:14)
[2020-10-14] MEDS: FUROSEMIDE 40 MG TABLET (FP) PO SCH (09:14)
[2020-10-14] MEDS: MELATONIN 5 MG TABLETS PO SCH (21:31)
[2020-10-14] MEDS: ATORVASTATIN CA 40 MG TABLET (FP) PO SCH (21:31)
[2020-10-15] MEDS: ALBUTEROL SO4 2.5/IPRATROPIUM 0.5 INH SOL 3 ML VIAL.NEB. NEB SCH ×6 (00:21→21:03)
[2020-10-15] MEDS ORDERED: PIPERACILLIN/TAZOBACTAM 3.375 GM VIAL IVPB ONE ×3 (00:37→18:40)
[2020-10-15] MEDS ORDERED: DEXTROSE 5%-WATER - 50 ML IVPB ONE ×3 (00:37→18:40)
[2020-10-15] MEDS: PIPERACILLIN/TAZOB 3.375 GM 3.375 GM in DEXTROSE 5%-WATER - 50 ML IVPB SCH ×3 (01:40→18:44)
[2020-10-15 08:46] LABS: BASO % 0.1 % (0-2.0); HEMATOCRIT 35.2 % (32.4-45.2); HEMOGLOBIN 10.7 GM/dL (10.7-15.3); LYMPH % 3.7 % (8-40); MCH 26.2 pg (25.7-33.7); MCHC 30.5 g/dl (32.0-36.0); MONO % 8.7 % (3.8-10.2); NEUT % 87.5 % (42.8-82.8); PLATELET COUNT 167 K/MM3 (134-434); RDW 18.9 % (11.6-15.6); WHITE BLOOD COUNT 12.4 K/mm3 (4.0-10.0)
[2020-10-15 10:14] LABS: ALBUMIN 3.3 g/dl (3.4-5.0); BLOOD UREA NITROGEN 54.9 mg/dL (7-18); CALCIUM 9.9 mg/dL (8.5-10.1)
[2020-10-15 10:19] LABS: BILIRUBIN,TOTAL 1.2 mg/dL (0.2-1); TOT PROT 6.6 g/dl (6.4-8.2)
[2020-10-15] MEDS: predniSONE 20 MG TABLET (UD) PO SCH (10:58)
[2020-10-15] MEDS: FUROSEMIDE 40 MG TABLET (FP) PO SCH (11:00)
[2020-10-15 14:46] LABS: INR 1.54 (0.83-1.09); PROTHROMBIN TIME (PATIENT) 18.4 SEC (9.7-13.0)
[2020-10-15] MEDS: MELATONIN 5 MG TABLETS PO SCH (21:04)
[2020-10-15] MEDS: ATORVASTATIN CA 40 MG TABLET (FP) PO SCH (21:05)
[2020-10-16] MEDS: ALBUTEROL SO4 2.5/IPRATROPIUM 0.5 INH SOL 3 ML VIAL.NEB. NEB SCH ×6 (00:35→19:49)
[2020-10-16] MEDS ORDERED: DEXTROSE 5%-WATER - 50 ML IVPB ONE ×3 (01:23→17:59)
[2020-10-16] MEDS ORDERED: PIPERACILLIN/TAZOBACTAM 3.375 GM VIAL IVPB ONE ×3 (01:23→17:59)
[2020-10-16] MEDS: PIPERACILLIN/TAZOB 3.375 GM 3.375 GM in DEXTROSE 5%-WATER - 50 ML IVPB SCH ×3 (01:24→18:18)
[2020-10-16 08:31] LABS: BASO % 0.1 % (0-2.0); HEMATOCRIT 36.7 % (32.4-45.2); HEMOGLOBIN 11.3 GM/dL (10.7-15.3); LYMPH % 1.9 % (8-40); MCH 26.3 pg (25.7-33.7); MCHC 30.7 g/dl (32.0-36.0); MEAN CELL VOLUME 85.5 fl (80-96); MONO % 6.5 % (3.8-10.2); NEUT % 91.5 % (42.8-82.8); PLATELET COUNT 155 K/MM3 (134-434); RBC 4.29 M/mm3 (3.60-5.2); RDW 19.2 % (11.6-15.6); WHITE BLOOD COUNT 12.6 K/mm3 (4.0-10.0)
[2020-10-16 09:06] LABS: CALCIUM 9.7 mg/dL (8.5-10.1)
[2020-10-16 09:07] LABS: ALBUMIN 3.3 g/dl (3.4-5.0)
[2020-10-16 09:10] LABS: CREATININE 1.9 mg/dL (0.55-1.3)
[2020-10-16 09:11] LABS: BILIRUBIN,TOTAL 1.2 mg/dL (0.2-1); TOT PROT 6.8 g/dl (6.4-8.2)
[2020-10-16] MEDS: predniSONE 20 MG TABLET (UD) PO SCH (09:32)
[2020-10-16 10:33] LABS: ANISOCYTOSIS 2+; MACROCYTOSIS 1+; OVALOCYTE 1+; PLATELET ESTIMATE DECREASED; TEAR DROP CELLS 1+
[2020-10-16 18:56] VITALS: BMI 32.6
[2020-10-16] MEDS: ATORVASTATIN CA 40 MG TABLET (FP) PO SCH (21:16)
[2020-10-16] MEDS: MELATONIN 5 MG TABLETS PO SCH (21:16)
[2020-10-17] MEDS: ALBUTEROL SO4 2.5/IPRATROPIUM 0.5 INH SOL 3 ML VIAL.NEB. NEB SCH ×7 (00:13→23:59)
[2020-10-17] MEDS ORDERED: DEXTROSE 5%-WATER - 50 ML IVPB ONE ×3 (00:59→17:31)
[2020-10-17] MEDS ORDERED: PIPERACILLIN/TAZOBACTAM 3.375 GM VIAL IVPB ONE ×3 (00:59→17:31)
[2020-10-17] MEDS: PIPERACILLIN/TAZOB 3.375 GM 3.375 GM in DEXTROSE 5%-WATER - 50 ML IVPB SCH ×3 (01:34→17:33)
[2020-10-17 08:51] LABS: BASO % 0.1 % (0-2.0); HEMATOCRIT 38.1 % (32.4-45.2); HEMOGLOBIN 11.5 GM/dL (10.7-15.3); MCH 26.4 pg (25.7-33.7); MCHC 30.2 g/dl (32.0-36.0); MEAN CELL VOLUME 87.4 fl (80-96); MEAN PLT VOLUME 9.7 fl (7.5-11.1); MONO % 6.5 % (3.8-10.2); NEUT % 90.4 % (42.8-82.8); PLATELET COUNT 153 K/MM3 (134-434); RBC 4.36 M/mm3 (3.60-5.2); RDW 19.6 % (11.6-15.6); WHITE BLOOD COUNT 14.6 K/mm3 (4.0-10.0)
[2020-10-17 09:14] LABS: ALBUMIN 3.3 g/dl (3.4-5.0); CALCIUM 10.2 mg/dL (8.5-10.1)
[2020-10-17 09:17] LABS: BLOOD UREA NITROGEN 58.2 mg/dL (7-18)
[2020-10-17 09:22] LABS: BILIRUBIN,TOTAL 1.1 mg/dL (0.2-1)
[2020-10-17] MEDS ORDERED: ACETAMINOPHEN 1000 MG/100 ML VIAL (NON FORMULARY) IVPB PRN (12:45)
[2020-10-17] MEDS: ATORVASTATIN CA 40 MG TABLET (FP) PO SCH (22:20)
[2020-10-17] MEDS: MELATONIN 5 MG TABLETS PO SCH (22:21)
[2020-10-18] MEDS ORDERED: DEXTROSE 5%-WATER - 50 ML IVPB ONE ×3 (01:16→14:45)
[2020-10-18] MEDS ORDERED: PIPERACILLIN/TAZOBACTAM 3.375 GM VIAL IVPB ONE ×3 (01:16→14:45)
[2020-10-18] MEDS: PIPERACILLIN/TAZOB 3.375 GM 3.375 GM in DEXTROSE 5%-WATER - 50 ML IVPB SCH ×2 (01:53→09:20)
[2020-10-18] MEDS: ALBUTEROL SO4 2.5/IPRATROPIUM 0.5 INH SOL 3 ML VIAL.NEB. NEB SCH ×2 (04:00→08:17)
[2020-10-18 08:13] LABS: BASO % 0.1 % (0-2.0); EOS % 0.1 % (0-4.5); HEMATOCRIT 37.3 % (32.4-45.2); HEMOGLOBIN 11.5 GM/dL (10.7-15.3); LYMPH % 1.7 % (8-40); MCH 26.3 pg (25.7-33.7); MCHC 30.7 g/dl (32.0-36.0); MEAN CELL VOLUME 85.9 fl (80-96); MEAN PLT VOLUME 9.6 fl (7.5-11.1); MONO % 7.2 % (3.8-10.2); NEUT % 90.9 % (42.8-82.8); PLATELET COUNT 140 K/MM3 (134-434); RBC 4.35 M/mm3 (3.60-5.2); RDW 19.2 % (11.6-15.6); WHITE BLOOD COUNT 17.5 K/mm3 (4.0-10.0)
[2020-10-18 08:39] LABS: CALCIUM 10.1 mg/dL (8.5-10.1)
[2020-10-18 08:40] LABS: ALBUMIN 3.3 g/dl (3.4-5.0); BLOOD UREA NITROGEN 52.8 mg/dL (7-18)
[2020-10-18 08:44] LABS: BILIRUBIN,TOTAL 1.7 mg/dL (0.2-1)
[2020-10-18] MEDS ORDERED: FUROSEMIDE 40 MG/4 ML INJECTABLE VIAL IVPUSH ONE (09:02)
[2020-10-18 10:51] LABS: N-TERMINAL BNP 13795.8 pg/ml (5-450)
[2020-10-18] MEDS ORDERED: BENZOCAINE/MENTH/CETYLPYRD CL 1 EACH LOZENGE MM PRN (13:06)
[2020-10-18] MEDS ORDERED: VANCOMYCIN IVPB ONE (15:46)
[2020-10-18] MEDS: FUROSEMIDE 40 MG/4 ML INJECTABLE VIAL IVPUSH ONE ×2 (16:05→19:23)
[2020-10-18] MEDS: PIPERACILLIN/TAZOB 2.25 GM 2.25 GM in DEXTROSE 5%-WATER - 50 ML IVPB SCH (19:01)
[2020-10-18] MEDS: MELATONIN 5 MG TABLETS PO SCH (22:12)
[2020-10-18] MEDS: ATORVASTATIN CA 40 MG TABLET (FP) PO SCH (22:12)
[2020-10-19] MEDS ORDERED: DEXTROSE 5%-WATER - 50 ML IVPB ONE ×3 (02:08→16:32)
[2020-10-19] MEDS ORDERED: PIPERACILLIN/TAZOBACTAM 2.25 GM VIAL IVPB ONE ×3 (02:08→16:32)
[2020-10-19] MEDS: PIPERACILLIN/TAZOB 2.25 GM 2.25 GM in DEXTROSE 5%-WATER - 50 ML IVPB SCH ×3 (02:26→17:08)
[2020-10-19 03:12] LABS: EPI CELLS 13 /uL (0-25.1); HYALINE CASTS 3 /uL (0-3.1); URINE APPEARANCE CLOUDY; URINE BACTERIA 94 /uL (0-1359); URINE BILIRUBIN NEGATIVE (NEGATIVE); URINE COLOR YELLOW; URINE GLUCOSE (UA) NEGATIVE (NEGATIVE); URINE KETONE NEGATIVE (NEGATIVE); URINE LEUK ESTERASE 2+ (NEGATIVE); URINE NITRITE NEGATIVE (NEGATIVE); URINE PROTEIN 2+ (NEGATIVE); URINE RBC 1894 /uL (0-23.9); URINE UROBILINOGEN 0.2 mg/dL (0.2-1.0); URINE WBC 83 /uL (0-25.8)
[2020-10-19 06:35] LABS: BASO % 0.2 % (0-2.0); HEMATOCRIT 37.5 % (32.4-45.2); HEMOGLOBIN 11.4 GM/dL (10.7-15.3); LYMPH % 2.8 % (8-40); MCHC 30.3 g/dl (32.0-36.0); MEAN CELL VOLUME 85.6 fl (80-96); MEAN PLT VOLUME 10.1 fl (7.5-11.1); PLATELET COUNT 127 K/MM3 (134-434); RBC 4.38 M/mm3 (3.60-5.2); RDW 19.2 % (11.6-15.6); WHITE BLOOD COUNT 16.2 K/mm3 (4.0-10.0)
[2020-10-19 06:59] LABS: BLOOD UREA NITROGEN 69.6 mg/dL (7-18); CALCIUM 9.9 mg/dL (8.5-10.1)
[2020-10-19 07:00] LABS: ALBUMIN 3.2 g/dl (3.4-5.0)
[2020-10-19 07:05] LABS: BILIRUBIN,TOTAL 1.6 mg/dL (0.2-1)
[2020-10-19 07:06] LABS: TOT PROT 6.6 g/dl (6.4-8.2)
[2020-10-19] MEDS ORDERED: FUROSEMIDE 40 MG/4 ML INJECTABLE VIAL IVPUSH ONE ×2 (10:45→16:00)
[2020-10-19] MEDS ORDERED: VANCOMYCIN/WATER FOR INJ (PEG) 750 MG/150 ML BAG IVPB ONE (19:00)
[2020-10-19] MEDS: ATORVASTATIN CA 40 MG TABLET (FP) PO SCH (21:43)
[2020-10-19] MEDS: MELATONIN 5 MG TABLETS PO SCH (21:43)
[2020-10-20] MEDS: MEROPENEM 500 MG in DEXTROSE 5%-WATER 100 ML IVPB SCH ×3 (01:14→17:34)
[2020-10-20 01:59] LABS: ARTERIAL BLD GAS O2 SATURATION 98.6 mmHg (95-98); ARTERIAL BLOOD GAS PO2 130.6 mmHg (80-100); ARTERIAL BLOOD GAS pH 7.395 (7.350-7.450)
[2020-10-20 02:12] LABS: ALLENS TEST POSITIVE
[2020-10-20 02:13] LABS: VENT MODE S/T; VENT RATE 12
[2020-10-20 07:32] LABS: BASO % 0.2 % (0-2.0); EOS % 0.1 % (0-4.5); HEMATOCRIT 40.5 % (32.4-45.2); HEMOGLOBIN 12.1 GM/dL (10.7-15.3); LYMPH % 2.6 % (8-40); MCH 25.7 pg (25.7-33.7); MCHC 29.9 g/dl (32.0-36.0); MEAN CELL VOLUME 86.1 fl (80-96); MEAN PLT VOLUME 10.1 fl (7.5-11.1); MONO % 7.5 % (3.8-10.2); NEUT % 89.6 % (42.8-82.8); PLATELET COUNT 102 K/MM3 (134-434); RBC 4.71 M/mm3 (3.60-5.2); RDW 19.5 % (11.6-15.6); WHITE BLOOD COUNT 15.1 K/mm3 (4.0-10.0)
[2020-10-20] MEDS ORDERED: METOPROLOL TARTRATE 5 MG/5 ML VIAL ONE (07:47)
[2020-10-20 07:52] LABS: ALBUMIN 2.6 g/dl (3.4-5.0); BLOOD UREA NITROGEN 69.2 mg/dL (7-18)
[2020-10-20 07:55] LABS: BILIRUBIN,TOTAL 1.2 mg/dL (0.2-1); CALCIUM 9.3 mg/dL (8.5-10.1); TOT PROT 5.7 g/dl (6.4-8.2)
[2020-10-20 07:56] LABS: CREATININE 1.8 mg/dL (0.55-1.3)
[2020-10-20] MEDS ORDERED: METOPROLOL TARTRATE 5 MG/5 ML VIAL IVPUSH ONE ×2 (08:15→18:02)
[2020-10-20] MEDS ORDERED: MEROPENEM 500 MG VIAL (RESTRICTED TO ID) IVPB ONE (09:01)
[2020-10-20] MEDS ORDERED: DEXTROSE 5%-WATER 100 ML IVPB ONE (09:01)
[2020-10-20] MEDS ORDERED: FUROSEMIDE 40 MG/4 ML INJECTABLE VIAL IVPUSH ONE (09:30)
[2020-10-20] MEDS ORDERED: KCL 10 MEQ IVPB 10 MEQ/100 ML INFUS.BAG IVPB SCH (10:30)
[2020-10-20] MEDS: KCL 10 MEQ IVPB 10 MEQ/100 ML INFUS.BAG IVPB SCH ×2 (10:37→11:54)
[2020-10-20] MEDS: METOPROLOL TARTRATE 5 MG/5 ML VIAL IVPUSH SCH (20:55)
[2020-10-20] MEDS: MELATONIN 5 MG TABLETS PO SCH (21:07)
[2020-10-20] MEDS: ATORVASTATIN CA 40 MG TABLET (FP) PO SCH (21:07)
[2020-10-21] MEDS ORDERED: MEROPENEM 500 MG VIAL (RESTRICTED TO ID) IVPB ONE ×2 (00:58→09:40)
[2020-10-21] MEDS ORDERED: DEXTROSE 5%-WATER 100 ML IVPB ONE ×2 (00:58→09:41)
[2020-10-21] MEDS: METOPROLOL TARTRATE 5 MG/5 ML VIAL IVPUSH SCH ×6 (01:04→21:22)
[2020-10-21] MEDS: MEROPENEM 500 MG in DEXTROSE 5%-WATER 100 ML IVPB SCH ×3 (01:06→18:32)
[2020-10-21] MEDS: FUROSEMIDE 40 MG/4 ML INJECTABLE VIAL IVPUSH SCH ×2 (06:06→14:39)
[2020-10-21 07:32] LABS: CALCIUM 9.3 mg/dL (8.5-10.1)
[2020-10-21 07:33] LABS: MAGNESIUM 2.9 mg/dL (1.8-2.4)
[2020-10-21 07:36] LABS: ALBUMIN 2.7 g/dl (3.4-5.0); CREATININE 1.8 mg/dL (0.55-1.3); PHOSPHOROUS 3.4 mg/dL (2.5-4.9)
[2020-10-21 07:37] LABS: BLOOD UREA NITROGEN 71.2 mg/dL (7-18)
[2020-10-21 07:38] LABS: BILIRUBIN,TOTAL 1.1 mg/dL (0.2-1); TOT PROT 5.8 g/dl (6.4-8.2)
[2020-10-21] MEDS ORDERED: POTASSIUM CHLORIDE 20 MEQ in DEXTROSE 5%-WATER - 1,000 ML IV SCH ×2 (12:00→14:52)
[2020-10-21] MEDS ORDERED: POTASSIUM CHLORIDE TABS 10 MEQ TABLET.ER (FP) PO ONE (12:30)
[2020-10-21] MEDS: KCL 10 MEQ IVPB 10 MEQ/100 ML INFUS.BAG IVPB SCH ×3 (14:40→17:18)
[2020-10-21] MEDS: LEVALBUTEROL HCL 0.31 MG/3 ML VIAL.NEB IH PRN (17:03)
[2020-10-21] MEDS ORDERED: HEPARIN NA (PORCINE) 5,000 UNITS/ML 1ML VIAL IVPUSH PRN ×2 (17:25)
[2020-10-21] MEDS ORDERED: dilTIAZem HCL 50 MG/10 ML - 10 ML VIAL IVPUSH PRN ×2 (17:27→22:33)
[2020-10-21] MEDS ORDERED: HEPARIN - 25,000 UNIT in SODIUM CHLORIDE 495 ML IV SCH (17:30)
[2020-10-21] MEDS: MELATONIN 5 MG TABLETS PO SCH (21:24)
[2020-10-21] MEDS: ATORVASTATIN CA 40 MG TABLET (FP) PO SCH (21:25)
[2020-10-22] MEDS: METOPROLOL TARTRATE 5 MG/5 ML VIAL IVPUSH SCH ×3 (01:40→09:25)
[2020-10-22] MEDS ORDERED: DEXTROSE 5%-WATER 100 ML IVPB ONE (02:04)
[2020-10-22] MEDS ORDERED: MEROPENEM 500 MG VIAL (RESTRICTED TO ID) IVPB ONE (02:04)
[2020-10-22] MEDS: MEROPENEM 500 MG in DEXTROSE 5%-WATER 100 ML IVPB SCH ×3 (03:00→17:16)
[2020-10-22] MEDS ORDERED: POTASSIUM CHLORIDE 20 MEQ in DEXTROSE 5%-WATER - 1,000 ML IV SCH (07:35)
[2020-10-22 07:41] LABS: ALBUMIN 2.8 g/dl (3.4-5.0); CALCIUM 9.1 mg/dL (8.5-10.1)
[2020-10-22 07:42] LABS: BLOOD UREA NITROGEN 75.3 mg/dL (7-18); MAGNESIUM 2.8 mg/dL (1.8-2.4)
[2020-10-22 07:45] LABS: CREATININE 1.8 mg/dL (0.55-1.3)
[2020-10-22 07:46] LABS: BILIRUBIN,TOTAL 1.1 mg/dL (0.2-1); TOT PROT 6.1 g/dl (6.4-8.2)
[2020-10-22] MEDS: LEVALBUTEROL HCL 0.31 MG/3 ML VIAL.NEB IH PRN ×4 (08:00→20:15)
[2020-10-22] MEDS ORDERED: Insulin (LOG) Aspart 100 UNITS/ML VIAL SQ ONE (08:10)
[2020-10-22] MEDS: AMINO ACIDS 4.25%/D5W 1,000 ML IV SCH ×2 (09:21→21:40)
[2020-10-22] MEDS: INSULIN SLIDING SCALE (NOVOLOG) 1 VIAL SQ SCH ×2 (11:39→17:16)
[2020-10-22] MEDS ORDERED: METOPROLOL TARTRATE 5 MG/5 ML VIAL IVPB PRN (12:33)
[2020-10-22 12:50] LABS: ARTERIAL BLD GAS O2 SATURATION 96.8 mmHg (95-98); ARTERIAL BLOOD GAS BASE EXCESS 2.1 mmol/L (-2-2); ARTERIAL BLOOD GAS PO2 82.1 mmHg (80-100); ARTERIAL BLOOD GAS pH 7.477 (7.350-7.450)
[2020-10-22 12:58] LABS: ALLENS TEST POSITIVE
[2020-10-22] MEDS ORDERED: CLOPIDOGREL BISULFATE 75 MG TABLET (FP) PO ONE (14:27)
[2020-10-22] MEDS ORDERED: ENOXAPARIN NA (PORCINE) 80 MG/0.8 ML DISP.SYRIN SQ SCH ×2 (20:00→20:31)
[2020-10-22] MEDS: ENOXAPARIN NA (PORCINE) 80 MG/0.8 ML DISP.SYRIN SQ SCH (21:40)
[2020-10-22] MEDS: MELATONIN 5 MG TABLETS PO SCH (23:55)
[2020-10-22] MEDS: ATORVASTATIN CA 40 MG TABLET (FP) PO SCH (23:55)
[2020-10-22] MEDS: METOPROLOL TARTRATE 50 MG TABLET (FP) PO SCH (23:55)
[2020-10-23] MEDS ORDERED: MEROPENEM 500 MG VIAL (RESTRICTED TO ID) IVPB ONE ×3 (02:54→18:55)
[2020-10-23] MEDS ORDERED: DEXTROSE 5%-WATER 100 ML IVPB ONE ×3 (02:54→18:55)
[2020-10-23] MEDS: MEROPENEM 500 MG in DEXTROSE 5%-WATER 100 ML IVPB SCH ×3 (03:12→18:56)
[2020-10-23] MEDS: INSULIN SLIDING SCALE (NOVOLOG) 1 VIAL SQ SCH ×3 (06:58→17:46)
[2020-10-23 07:09] LABS: HEMATOCRIT 38.4 % (32.4-45.2); HEMOGLOBIN 11.6 GM/dL (10.7-15.3); MCH 25.5 pg (25.7-33.7); MCHC 30.3 g/dl (32.0-36.0); MEAN CELL VOLUME 84.1 fl (80-96); MEAN PLT VOLUME 9.7 fl (7.5-11.1); PLATELET COUNT 90 K/MM3 (134-434); RBC 4.57 M/mm3 (3.60-5.2); RDW 19.6 % (11.6-15.6); WHITE BLOOD COUNT 13.4 K/mm3 (4.0-10.0)
[2020-10-23] MEDS: LEVALBUTEROL HCL 0.31 MG/3 ML VIAL.NEB IH PRN (07:28)
[2020-10-23 07:29] LABS: CALCIUM 8.8 mg/dL (8.5-10.1)
[2020-10-23 07:30] LABS: MAGNESIUM 2.6 mg/dL (1.8-2.4)
[2020-10-23 07:33] LABS: CREATININE 1.8 mg/dL (0.55-1.3); PHOSPHOROUS 2.5 mg/dL (2.5-4.9)
[2020-10-23] MEDS: INSULIN (LEVEMIR) 100 UNITS/ML UNITS SQ SCH ×2 (10:04→21:49)
[2020-10-23] MEDS: AMINO ACIDS 4.25%/D5W 1,000 ML IV SCH ×2 (10:32→21:18)
[2020-10-23] MEDS: METOPROLOL TARTRATE 50 MG TABLET (FP) PO SCH ×2 (10:32→21:49)
[2020-10-23] MEDS: BACITRACIN 15 GM TUBE TOPICAL OINTMENT TP SCH (10:34)
[2020-10-23] MEDS: ENOXAPARIN NA (PORCINE) 80 MG/0.8 ML DISP.SYRIN SQ SCH ×2 (21:19→21:49)
[2020-10-23] MEDS: ATORVASTATIN CA 40 MG TABLET (FP) PO SCH (21:49)
[2020-10-23] MEDS: MELATONIN 5 MG TABLETS PO SCH (22:45)
[2020-10-24] MEDS ORDERED: MEROPENEM 500 MG VIAL (RESTRICTED TO ID) IVPB ONE ×3 (03:12→18:15)
[2020-10-24] MEDS ORDERED: DEXTROSE 5%-WATER 100 ML IVPB ONE ×3 (03:13→18:16)
[2020-10-24] MEDS: MEROPENEM 500 MG in DEXTROSE 5%-WATER 100 ML IVPB SCH ×3 (03:45→18:18)
[2020-10-24] MEDS: INSULIN SLIDING SCALE (NOVOLOG) 1 VIAL SQ SCH ×3 (06:40→17:23)
[2020-10-24] MEDS: INSULIN (LEVEMIR) 100 UNITS/ML UNITS SQ SCH ×2 (06:41→21:40)
[2020-10-24] MEDS ORDERED: INSULIN (LEVEMIR) 100 UNITS/ML UNITS SQ ONE (07:33)
[2020-10-24 08:27] LABS: CALCIUM 8.2 mg/dL (8.5-10.1)
[2020-10-24 08:28] LABS: ALBUMIN 2.9 g/dl (3.4-5.0); BLOOD UREA NITROGEN 92.7 mg/dL (7-18); MAGNESIUM 2.7 mg/dL (1.8-2.4)
[2020-10-24 08:30] LABS: BILIRUBIN,TOTAL 1.1 mg/dL (0.2-1)
[2020-10-24 08:31] LABS: CREATININE 1.5 mg/dL (0.55-1.3); PHOSPHOROUS 1.9 mg/dL (2.5-4.9)
[2020-10-24 08:34] LABS: HEMATOCRIT 37.3 % (32.4-45.2); HEMOGLOBIN 11.5 GM/dL (10.7-15.3); MCH 25.7 pg (25.7-33.7); MCHC 30.9 g/dl (32.0-36.0); MEAN CELL VOLUME 83.3 fl (80-96); PLATELET COUNT 83 K/MM3 (134-434); RBC 4.48 M/mm3 (3.60-5.2); RDW 19.6 % (11.6-15.6); WHITE BLOOD COUNT 14.7 K/mm3 (4.0-10.0)
[2020-10-24 08:36] LABS: BASO % 0.4 % (0-2.0); EOS % 2.5 % (0-4.5); HEMATOCRIT 37.1 % (32.4-45.2); HEMOGLOBIN 11.5 GM/dL (10.7-15.3); MCH 25.9 pg (25.7-33.7); MEAN CELL VOLUME 83.5 fl (80-96); MEAN PLT VOLUME 9.9 fl (7.5-11.1); MONO % 9.2 % (3.8-10.2); NEUT % 84.9 % (42.8-82.8); PLATELET COUNT 83 K/MM3 (134-434); RBC 4.45 M/mm3 (3.60-5.2); RDW 19.7 % (11.6-15.6); WHITE BLOOD COUNT 14.6 K/mm3 (4.0-10.0)
[2020-10-24] MEDS: METOPROLOL TARTRATE 50 MG TABLET (FP) PO SCH ×2 (10:58→21:31)
[2020-10-24] MEDS: AMINO ACIDS 4.25%/D5W 1,000 ML IV SCH (10:58)
[2020-10-24] MEDS: BACITRACIN 15 GM TUBE TOPICAL OINTMENT TP SCH (11:13)
[2020-10-24] MEDS ORDERED: FUROSEMIDE 40 MG/4 ML INJECTABLE VIAL IVPUSH ONE (12:53)
[2020-10-24] MEDS: MELATONIN 5 MG TABLETS PO SCH (21:31)
[2020-10-24] MEDS: ENOXAPARIN NA (PORCINE) 80 MG/0.8 ML DISP.SYRIN SQ SCH (21:31)
[2020-10-24] MEDS: ATORVASTATIN CA 40 MG TABLET (FP) PO SCH (21:31)
[2020-10-25] MEDS ORDERED: MEROPENEM 500 MG VIAL (RESTRICTED TO ID) IVPB ONE ×3 (01:29→16:58)
[2020-10-25] MEDS ORDERED: DEXTROSE 5%-WATER 100 ML IVPB ONE ×3 (01:29→16:58)
[2020-10-25] MEDS: MEROPENEM 500 MG in DEXTROSE 5%-WATER 100 ML IVPB SCH ×3 (01:36→17:04)
[2020-10-25] MEDS: INSULIN (LEVEMIR) 100 UNITS/ML UNITS SQ SCH ×2 (06:03→21:30)
[2020-10-25] MEDS: INSULIN SLIDING SCALE (NOVOLOG) 1 VIAL SQ SCH ×3 (06:03→17:05)
[2020-10-25 06:58] LABS: BASO % 0.2 % (0-2.0); EOS % 2.7 % (0-4.5); HEMATOCRIT 37.3 % (32.4-45.2); HEMOGLOBIN 11.2 GM/dL (10.7-15.3); LYMPH % 3.4 % (8-40); MCH 25.1 pg (25.7-33.7); MCHC 30.1 g/dl (32.0-36.0); MEAN CELL VOLUME 83.3 fl (80-96); MEAN PLT VOLUME 10.1 fl (7.5-11.1); MONO % 8.6 % (3.8-10.2); NEUT % 85.1 % (42.8-82.8); PLATELET COUNT 84 K/MM3 (134-434); RBC 4.48 M/mm3 (3.60-5.2); RDW 19.2 % (11.6-15.6); WHITE BLOOD COUNT 14.1 K/mm3 (4.0-10.0)
[2020-10-25 08:30] LABS: BLOOD UREA NITROGEN 84.7 mg/dL (7-18); CALCIUM 9.1 mg/dL (8.5-10.1)
[2020-10-25 08:31] LABS: MAGNESIUM 2.8 mg/dL (1.8-2.4)
[2020-10-25 08:33] LABS: CREATININE 1.2 mg/dL (0.55-1.3)
[2020-10-25 08:34] LABS: PHOSPHOROUS 1.9 mg/dL (2.5-4.9)
[2020-10-25 08:35] LABS: BILIRUBIN,TOTAL 1.2 mg/dL (0.2-1); TOT PROT 5.6 g/dl (6.4-8.2)
[2020-10-25 08:40] LABS: ALBUMIN 2.8 g/dl (3.4-5.0)
[2020-10-25] MEDS: DRONABINOL 2.5 MG CAPSULE PO SCH (09:04)
[2020-10-25] MEDS: METOPROLOL TARTRATE 50 MG TABLET (FP) PO SCH ×2 (09:04→21:30)
[2020-10-25] MEDS: AMINO ACIDS 4.25%/D5W 1,000 ML IV SCH ×2 (09:05→20:58)
[2020-10-25] MEDS: BACITRACIN 15 GM TUBE TOPICAL OINTMENT TP SCH (09:05)
[2020-10-25] MEDS: ENOXAPARIN NA (PORCINE) 80 MG/0.8 ML DISP.SYRIN SQ SCH (20:19)
[2020-10-25] MEDS: ATORVASTATIN CA 40 MG TABLET (FP) PO SCH (21:30)
[2020-10-25] MEDS: MELATONIN 5 MG TABLETS PO SCH (21:31)
[2020-10-26] MEDS ORDERED: DEXTROSE 5%-WATER 100 ML IVPB ONE ×3 (00:46→16:41)
[2020-10-26] MEDS ORDERED: MEROPENEM 500 MG VIAL (RESTRICTED TO ID) IVPB ONE ×3 (00:46→16:41)
[2020-10-26] MEDS: MEROPENEM 500 MG in DEXTROSE 5%-WATER 100 ML IVPB SCH ×3 (01:12→18:01)
[2020-10-26] MEDS: AMINO ACIDS 4.25%/D5W 1,000 ML IV SCH ×3 (06:19→21:20)
[2020-10-26] MEDS: INSULIN (LEVEMIR) 100 UNITS/ML UNITS SQ SCH ×2 (06:23→21:53)
[2020-10-26] MEDS: INSULIN SLIDING SCALE (NOVOLOG) 1 VIAL SQ SCH ×3 (06:23→17:19)
[2020-10-26 08:01] LABS: BASO % 0.3 % (0-2.0); EOS % 2.6 % (0-4.5); HEMATOCRIT 35.1 % (32.4-45.2); HEMOGLOBIN 10.6 GM/dL (10.7-15.3); LYMPH % 2.1 % (8-40); MCH 25.4 pg (25.7-33.7); MCHC 30.2 g/dl (32.0-36.0); MEAN CELL VOLUME 84.1 fl (80-96); MEAN PLT VOLUME 10.6 fl (7.5-11.1); MONO % 9.4 % (3.8-10.2); NEUT % 85.6 % (42.8-82.8); PLATELET COUNT 84 K/MM3 (134-434); RBC 4.18 M/mm3 (3.60-5.2); RDW 19.8 % (11.6-15.6); WHITE BLOOD COUNT 12.4 K/mm3 (4.0-10.0)
[2020-10-26 08:17] LABS: CHLORIDE 94 mmol/L (98-107); SODIUM 127 mmol/L (136-145)
[2020-10-26 08:22] LABS: CALCIUM 7.9 mg/dL (8.5-10.1)
[2020-10-26 08:23] LABS: ALBUMIN 2.4 g/dl (3.4-5.0); ANION GAP 7 MMOL/L (8-16); BLOOD UREA NITROGEN 83.4 mg/dL (7-18); CO2 27 mmol/L (21-32)
[2020-10-26 08:25] LABS: SGOT/AST 53 U/L (15-37); SGPT/ALT 64 U/L (13-61)
[2020-10-26 08:26] LABS: CREATININE 1.2 mg/dL (0.55-1.3)
[2020-10-26 08:27] LABS: BILIRUBIN,TOTAL 0.9 mg/dL (0.2-1); TOT PROT 5.1 g/dl (6.4-8.2)
[2020-10-26 08:28] LABS: ALK PHOS 82 U/L (45-117)
[2020-10-26 08:31] LABS: GLUCOSE,RANDOM 423 mg/dL (74-106)
[2020-10-26] MEDS: METOPROLOL TARTRATE 50 MG TABLET (FP) PO SCH ×2 (10:24→21:18)
[2020-10-26] MEDS: BACITRACIN 15 GM TUBE TOPICAL OINTMENT TP SCH (10:24)
[2020-10-26] MEDS: DRONABINOL 2.5 MG CAPSULE PO SCH (10:25)
[2020-10-26] MEDS ORDERED: FUROSEMIDE 40 MG/4 ML INJECTABLE VIAL IVPUSH ONE (12:17)
[2020-10-26] MEDS ORDERED: POTASSIUM CHLORIDE TABS 20 MEQ TABLET.ER (FP) PO ONE (12:17)
[2020-10-26] MEDS: ENOXAPARIN NA (PORCINE) 80 MG/0.8 ML DISP.SYRIN SQ SCH (20:13)
[2020-10-26] MEDS: MELATONIN 5 MG TABLETS PO SCH (21:19)
[2020-10-26] MEDS: ATORVASTATIN CA 40 MG TABLET (FP) PO SCH (21:19)
[2020-10-27] MEDS: AMINO ACIDS 4.25%/D5W 1,000 ML IV SCH (03:31)
[2020-10-27] MEDS: INSULIN (LEVEMIR) 100 UNITS/ML UNITS SQ SCH ×2 (06:23→22:08)
[2020-10-27] MEDS: INSULIN SLIDING SCALE (NOVOLOG) 1 VIAL SQ SCH ×3 (06:23→17:58)
[2020-10-27 08:39] LABS: CHLORIDE 87 mmol/L (98-107)
[2020-10-27 08:43] LABS: ALBUMIN 2.2 g/dl (3.4-5.0); BLOOD UREA NITROGEN 74.9 mg/dL (7-18); CALCIUM 7.6 mg/dL (8.5-10.1); CO2 24 mmol/L (21-32); MAGNESIUM 2.4 mg/dL (1.8-2.4)
[2020-10-27 08:46] LABS: CREATININE 1.2 mg/dL (0.55-1.3); SGOT/AST 51 U/L (15-37); SGPT/ALT 53 U/L (13-61)
[2020-10-27 08:47] LABS: PHOSPHOROUS 1.3 mg/dL (2.5-4.9)
[2020-10-27 08:48] LABS: BILIRUBIN,TOTAL 0.8 mg/dL (0.2-1); TOT PROT 4.9 g/dl (6.4-8.2)
[2020-10-27 08:49] LABS: ALK PHOS 77 U/L (45-117)
[2020-10-27 08:57] LABS: ANION GAP 8 MMOL/L (8-16); GLUCOSE,RANDOM 603 mg/dL (74-106); SODIUM 119 mmol/L (136-145)
[2020-10-27 09:36] LABS: BASO % 0.4 % (0-2.0); EOS % 2.2 % (0-4.5); HEMATOCRIT 37.8 % (32.4-45.2); HEMOGLOBIN 11.4 GM/dL (10.7-15.3); LYMPH % 4.4 % (8-40); MCHC 30.1 g/dl (32.0-36.0); MEAN CELL VOLUME 83.2 fl (80-96); MEAN PLT VOLUME 9.8 fl (7.5-11.1); MONO % 8.5 % (3.8-10.2); NEUT % 84.5 % (42.8-82.8); PLATELET COUNT 87 K/MM3 (134-434); RBC 4.54 M/mm3 (3.60-5.2); RDW 19.8 % (11.6-15.6)
[2020-10-27] MEDS: METOPROLOL TARTRATE 50 MG TABLET (FP) PO SCH ×2 (10:48→22:03)
[2020-10-27] MEDS: DRONABINOL 2.5 MG CAPSULE PO SCH (10:48)
[2020-10-27] MEDS: BACITRACIN 15 GM TUBE TOPICAL OINTMENT TP SCH (10:49)
[2020-10-27] MEDS ORDERED: FUROSEMIDE 40 MG/4 ML INJECTABLE VIAL IVPUSH ONE (12:51)
[2020-10-27] MEDS: ENOXAPARIN NA (PORCINE) 80 MG/0.8 ML DISP.SYRIN SQ SCH ×2 (20:54→21:05)
[2020-10-27] MEDS: ATORVASTATIN CA 40 MG TABLET (FP) PO SCH (22:02)
[2020-10-27] MEDS: MELATONIN 5 MG TABLETS PO SCH (22:03)
[2020-10-27 22:14] LABS: ALBUMIN 2.7 g/dl (3.4-5.0)
[2020-10-27 22:15] LABS: BLOOD UREA NITROGEN 90.6 mg/dL (7-18)
[2020-10-27 22:17] LABS: CREATININE 1.1 mg/dL (0.55-1.3)
[2020-10-27 22:19] LABS: BILIRUBIN,TOTAL 0.8 mg/dL (0.2-1); TOT PROT 5.7 g/dl (6.4-8.2)
[2020-10-28] MEDS ORDERED: DEXTROSE 50%-WATER - 25 GM/50 ML VIAL IVPUSH ONE (05:46)
[2020-10-28] MEDS ORDERED: DEXTROSE 50%-WATER 25 GM/50 ML DISP.SYRIN ONE (05:53)
[2020-10-28] MEDS ORDERED: PHENAZOPYRIDINE HCL 100 MG TABLET (FP) PO ONE ×2 (06:15→06:30)
[2020-10-28] MEDS: ACETAMINOPHEN 1000 MG/100 ML VIAL (NON FORMULARY) IVPB ONE ×2 (06:36→15:35)
[2020-10-28 08:11] LABS: BASO % 0.5 % (0-2.0); EOS % 4.1 % (0-4.5); HEMATOCRIT 38.6 % (32.4-45.2); HEMOGLOBIN 11.6 GM/dL (10.7-15.3); LYMPH % 4.4 % (8-40); MCH 25.2 pg (25.7-33.7); MEAN CELL VOLUME 83.9 fl (80-96); MEAN PLT VOLUME 10.1 fl (7.5-11.1); MONO % 8.4 % (3.8-10.2); NEUT % 82.6 % (42.8-82.8); PLATELET COUNT 81 10^3/uL (134-434); RBC 4.59 M/mm3 (3.60-5.2); RDW 19.9 % (11.6-15.6); WHITE BLOOD COUNT 10.9 K/mm3 (4.0-10.0)
[2020-10-28 08:28] LABS: CALCIUM 9.1 mg/dL (8.5-10.1)
[2020-10-28 08:29] LABS: BLOOD UREA NITROGEN 82.9 mg/dL (7-18); MAGNESIUM 2.8 mg/dL (1.8-2.4)
[2020-10-28 08:32] LABS: CREATININE 1.1 mg/dL (0.55-1.3); PHOSPHOROUS 2.3 mg/dL (2.5-4.9)
[2020-10-28] MEDS ORDERED: ACETAMINOPHEN 325 MG TABLET (FP) ONE (09:24)
[2020-10-28] MEDS: BACITRACIN 15 GM TUBE TOPICAL OINTMENT TP SCH (09:56)
[2020-10-28] MEDS: METOPROLOL TARTRATE 50 MG TABLET (FP) PO SCH ×2 (09:57→21:34)
[2020-10-28] MEDS: DRONABINOL 2.5 MG CAPSULE PO SCH (09:57)
[2020-10-28] MEDS: INSULIN SLIDING SCALE (NOVOLOG) 1 VIAL SQ SCH ×2 (10:48→16:28)
[2020-10-28 14:15] LABS: EPI CELLS 17 /uL (0-25.1); HYALINE CASTS 6 /uL (0-3.1); URINE APPEARANCE CLOUDY; URINE BILIRUBIN 1+ (NEGATIVE); URINE COLOR DK YELLOW; URINE GLUCOSE (UA) NEGATIVE (NEGATIVE); URINE KETONE NEGATIVE (NEGATIVE); URINE LEUK ESTERASE 3+ (NEGATIVE); URINE NITRITE POSITIVE (NEGATIVE); URINE PROTEIN 1+ (NEGATIVE); URINE WBC 631 /uL (0-25.8)
[2020-10-28] MEDS ORDERED: METOPROLOL TARTRATE 5 MG/5 ML VIAL IVPB PRN (15:25)
[2020-10-28] MEDS ORDERED: BENZOCAINE/MENTH/CETYLPYRD CL 1 EACH LOZENGE MM PRN (15:25)
[2020-10-28] MEDS ORDERED: dilTIAZem HCL 50 MG/10 ML - 10 ML VIAL IVPUSH PRN (15:25)
[2020-10-28] MEDS: TORSEMIDE 20 MG TABLET (FP) PO SCH (15:35)
[2020-10-28] MEDS ORDERED: ENOXAPARIN NA (PORCINE) 80 MG/0.8 ML DISP.SYRIN SQ SCH (20:00)
[2020-10-28] MEDS: APIXABAN 2.5 MG TABLET PO SCH (21:34)
[2020-10-28] MEDS: MELATONIN 5 MG TABLETS PO SCH (21:34)
[2020-10-28] MEDS: ATORVASTATIN CA 40 MG TABLET (FP) PO SCH (21:34)
[2020-10-28] MEDS: INSULIN (LEVEMIR) 100 UNITS/ML UNITS SQ SCH (21:41)
[2020-10-29] MEDS: INSULIN SLIDING SCALE (NOVOLOG) 1 VIAL SQ SCH ×4 (06:07→17:53)
[2020-10-29] MEDS: INSULIN (LEVEMIR) 100 UNITS/ML UNITS SQ SCH ×3 (06:07→21:47)
[2020-10-29] MEDS: DRONABINOL 2.5 MG CAPSULE PO SCH (09:51)
[2020-10-29] MEDS: TORSEMIDE 20 MG TABLET (FP) PO SCH (09:51)
[2020-10-29] MEDS: APIXABAN 2.5 MG TABLET PO SCH ×2 (09:51→21:37)
[2020-10-29] MEDS: METOPROLOL TARTRATE 50 MG TABLET (FP) PO SCH ×2 (09:51→21:37)
[2020-10-29] MEDS: BACITRACIN 15 GM TUBE TOPICAL OINTMENT TP SCH (09:53)
[2020-10-29] MEDS: ALBUTEROL SO4 0.042% IH SOL 1.25 MG/3 ML VIAL.NEB NEB PRN (11:50)
[2020-10-29] MEDS: ALBUTEROL SO4 2.5/IPRATROPIUM 0.5 INH SOL 3 ML VIAL.NEB. NEB SCH ×2 (14:35→20:45)
[2020-10-29] MEDS: ATORVASTATIN CA 40 MG TABLET (FP) PO SCH (21:36)
[2020-10-29] MEDS: MELATONIN 5 MG TABLETS PO SCH (21:37)
[2020-10-30] MEDS: INSULIN (LEVEMIR) 100 UNITS/ML UNITS SQ SCH ×2 (06:29→21:10)
[2020-10-30] MEDS: INSULIN SLIDING SCALE (NOVOLOG) 1 VIAL SQ SCH ×3 (06:29→18:16)
[2020-10-30] MEDS: ALBUTEROL SO4 2.5/IPRATROPIUM 0.5 INH SOL 3 ML VIAL.NEB. NEB SCH ×3 (08:18→21:00)
[2020-10-30 08:28] LABS: BASO % 0.9 % (0-2.0); EOS % 2.3 % (0-4.5); HEMATOCRIT 36.4 % (32.4-45.2); HEMOGLOBIN 11.3 GM/dL (10.7-15.3); LYMPH % 5.6 % (8-40); MCH 25.7 pg (25.7-33.7); MCHC 31.1 g/dl (32.0-36.0); MEAN CELL VOLUME 82.7 fl (80-96); MEAN PLT VOLUME 9.4 fl (7.5-11.1); MONO % 8.6 % (3.8-10.2); NEUT % 82.6 % (42.8-82.8); PLATELET COUNT 94 10^3/uL (134-434); RBC 4.41 M/mm3 (3.60-5.2); RDW 20.6 % (11.6-15.6); WHITE BLOOD COUNT 8.7 K/mm3 (4.0-10.0)
[2020-10-30 08:56] LABS: ALBUMIN 2.6 g/dl (3.4-5.0); BLOOD UREA NITROGEN 64.3 mg/dL (7-18); MAGNESIUM 2.5 mg/dL (1.8-2.4)
[2020-10-30 08:59] LABS: CREATININE 1.2 mg/dL (0.55-1.3); PHOSPHOROUS 3.1 mg/dL (2.5-4.9)
[2020-10-30 09:01] LABS: TOT PROT 5.8 g/dl (6.4-8.2)
[2020-10-30 09:47] LABS: ANISOCYTOSIS 2+; MACROCYTOSIS 0; OVALOCYTE 1+; PLATELET ESTIMATE DECREASED; TARGET CELLS 1+
[2020-10-30] MEDS ORDERED: PT OWN MED DRAWER 7, Y5N ONE (10:15)
[2020-10-30] MEDS: DRONABINOL 2.5 MG CAPSULE PO SCH (10:39)
[2020-10-30] MEDS: METOPROLOL TARTRATE 50 MG TABLET (FP) PO SCH ×2 (10:39→21:00)
[2020-10-30] MEDS: TORSEMIDE 20 MG TABLET (FP) PO SCH (10:39)
[2020-10-30] MEDS: APIXABAN 2.5 MG TABLET PO SCH ×2 (10:40→21:00)
[2020-10-30] MEDS: BACITRACIN 15 GM TUBE TOPICAL OINTMENT TP SCH (10:41)
[2020-10-30] MEDS: MELATONIN 5 MG TABLETS PO SCH (21:00)
[2020-10-30] MEDS: ATORVASTATIN CA 40 MG TABLET (FP) PO SCH (21:00)
[2020-10-31] MEDS: INSULIN SLIDING SCALE (NOVOLOG) 1 VIAL SQ SCH ×3 (06:03→17:54)
[2020-10-31] MEDS: INSULIN (LEVEMIR) 100 UNITS/ML UNITS SQ SCH ×2 (06:04→21:03)
[2020-10-31] MEDS: ALBUTEROL SO4 2.5/IPRATROPIUM 0.5 INH SOL 3 ML VIAL.NEB. NEB SCH ×3 (07:45→20:10)
[2020-10-31 08:15] LABS: BLOOD UREA NITROGEN 61.4 mg/dL (7-18)
[2020-10-31 08:17] LABS: CALCIUM 9.1 mg/dL (8.5-10.1); CREATININE 1.1 mg/dL (0.55-1.3); MAGNESIUM 2.5 mg/dL (1.8-2.4)
[2020-10-31 08:18] LABS: PHOSPHOROUS 2.9 mg/dL (2.5-4.9)
[2020-10-31] MEDS: TORSEMIDE 20 MG TABLET (FP) PO SCH (09:49)
[2020-10-31] MEDS: METOPROLOL TARTRATE 50 MG TABLET (FP) PO SCH ×2 (09:49→21:03)
[2020-10-31] MEDS: DRONABINOL 2.5 MG CAPSULE PO SCH (09:49)
[2020-10-31] MEDS: APIXABAN 2.5 MG TABLET PO SCH ×2 (09:49→21:03)
[2020-10-31] MEDS: BACITRACIN 15 GM TUBE TOPICAL OINTMENT TP SCH (09:50)
[2020-10-31] MEDS: MELATONIN 5 MG TABLETS PO SCH (21:02)
[2020-10-31] MEDS: ATORVASTATIN CA 40 MG TABLET (FP) PO SCH (21:02)
[2020-11-01] MEDS: INSULIN SLIDING SCALE (NOVOLOG) 1 VIAL SQ SCH ×3 (06:07→17:42)
[2020-11-01] MEDS: INSULIN (LEVEMIR) 100 UNITS/ML UNITS SQ SCH ×2 (06:07→21:08)
[2020-11-01] MEDS ORDERED: INSULIN (LEVEMIR) 100 UNITS/ML UNITS SQ ONE (06:11)
[2020-11-01] MEDS: ALBUTEROL SO4 2.5/IPRATROPIUM 0.5 INH SOL 3 ML VIAL.NEB. NEB SCH ×3 (07:00→19:35)
[2020-11-01] MEDS: DRONABINOL 2.5 MG CAPSULE PO SCH (09:22)
[2020-11-01] MEDS: APIXABAN 2.5 MG TABLET PO SCH ×2 (09:22→21:00)
[2020-11-01] MEDS: METOPROLOL TARTRATE 50 MG TABLET (FP) PO SCH ×2 (09:22→21:00)
[2020-11-01] MEDS: TORSEMIDE 20 MG TABLET (FP) PO SCH (09:22)
[2020-11-01] MEDS: BACITRACIN 15 GM TUBE TOPICAL OINTMENT TP SCH (09:23)
[2020-11-01] MEDS ORDERED: INSULIN (NOVOLOG) ASPART 100 UNITS/ML 10ML VIAL ONE (17:38)
[2020-11-01] MEDS: ATORVASTATIN CA 40 MG TABLET (FP) PO SCH (21:00)
[2020-11-01] MEDS: MELATONIN 5 MG TABLETS PO SCH (21:00)
[2020-11-01] MEDS ORDERED: HALOPERIDOL LACTATE 5 MG/ML IM ONE (21:44)
[2020-11-02] MEDS ORDERED: ACETAMINOPHEN 1000 MG/100 ML VIAL (NON FORMULARY) IVPB ONE (03:59)
[2020-11-02] MEDS ORDERED: HALOPERIDOL LACTATE 5 MG/ML IM ONE (04:01)
[2020-11-02] MEDS: INSULIN SLIDING SCALE (NOVOLOG) 1 VIAL SQ SCH ×3 (06:04→17:20)
[2020-11-02] MEDS: INSULIN (LEVEMIR) 100 UNITS/ML UNITS SQ SCH (06:04)
[2020-11-02] MEDS: ALBUTEROL SO4 2.5/IPRATROPIUM 0.5 INH SOL 3 ML VIAL.NEB. NEB SCH ×2 (07:28→20:03)
[2020-11-02] MEDS: TORSEMIDE 20 MG TABLET (FP) PO SCH (09:11)
[2020-11-02] MEDS: METOPROLOL TARTRATE 50 MG TABLET (FP) PO SCH ×3 (09:11→21:00)
[2020-11-02] MEDS: APIXABAN 2.5 MG TABLET PO SCH ×2 (09:12→21:00)
[2020-11-02] MEDS: DRONABINOL 2.5 MG CAPSULE PO SCH (09:12)
[2020-11-02] MEDS: BACITRACIN 15 GM TUBE TOPICAL OINTMENT TP SCH (09:12)
[2020-11-02] MEDS ORDERED: TORSEMIDE 20 MG TABLET (FP) PO SCH (10:22)
[2020-11-02] MEDS ORDERED: ALBUTEROL SO4 0.083% IH SOL 2.5 MG/3 ML VIAL.NEB. NEB ONE (10:55)
[2020-11-02] MEDS: ALBUTEROL SO4 0.042% IH SOL 1.25 MG/3 ML VIAL.NEB NEB PRN (10:59)
[2020-11-02] MEDS: traMADol HCL 50 MG TABLET PO PRN ×2 (11:02→22:45)
[2020-11-02] MEDS: ATORVASTATIN CA 40 MG TABLET (FP) PO SCH (21:00)
[2020-11-02] MEDS: MELATONIN 5 MG TABLETS PO SCH (21:00)
[2020-11-03] MEDS ORDERED: HALOPERIDOL LACTATE 5 MG/ML IM ONE (01:16)
[2020-11-03] MEDS: INSULIN SLIDING SCALE (NOVOLOG) 1 VIAL SQ SCH ×2 (06:36→12:37)
[2020-11-03] MEDS: ALBUTEROL SO4 2.5/IPRATROPIUM 0.5 INH SOL 3 ML VIAL.NEB. NEB SCH ×2 (07:19→08:15)
[2020-11-03 08:02] LABS: BASO % 1.2 % (0-2.0); EOS % 1.7 % (0-4.5); HEMATOCRIT 37.5 % (32.4-45.2); HEMOGLOBIN 11.4 GM/dL (10.7-15.3); LYMPH % 8.1 % (8-40); MCH 25.3 pg (25.7-33.7); MCHC 30.3 g/dl (32.0-36.0); MEAN CELL VOLUME 83.5 fl (80-96); MEAN PLT VOLUME 9.8 fl (7.5-11.1); MONO % 6.6 % (3.8-10.2); NEUT % 82.4 % (42.8-82.8); PLATELET COUNT 111 10^3/uL (134-434); RDW 21.9 % (11.6-15.6); WHITE BLOOD COUNT 9.1 K/mm3 (4.0-10.0)
[2020-11-03 08:30] LABS: CALCIUM 9.5 mg/dL (8.5-10.1)
[2020-11-03 08:31] LABS: ALBUMIN 2.8 g/dl (3.4-5.0); BLOOD UREA NITROGEN 59.6 mg/dL (7-18)
[2020-11-03 08:34] LABS: CREATININE 1.5 mg/dL (0.55-1.3)
[2020-11-03 08:36] LABS: BILIRUBIN,TOTAL 1.3 mg/dL (0.2-1); TOT PROT 6.1 g/dl (6.4-8.2)
[2020-11-03] MEDS: DRONABINOL 2.5 MG CAPSULE PO SCH (08:59)
[2020-11-03] MEDS: METOPROLOL TARTRATE 50 MG TABLET (FP) PO SCH (09:00)
[2020-11-03] MEDS: APIXABAN 2.5 MG TABLET PO SCH (09:00)
[2020-11-03] MEDS: BACITRACIN 15 GM TUBE TOPICAL OINTMENT TP SCH (09:01)
[2020-11-03 10:53] VITALS: BP 115/74; PULSE 120; TEMP 98.2
[2020-11-03 11:17] LABS: ANISOCYTOSIS 1+; MACROCYTOSIS 1+; PLATELET ESTIMATE DECREASED
== END 2020-11-03 12:00 | disposition home health service (06) | DRG 444 ==
LOC: JER 12:50 → JERBED 19:45 → J5S 10-11 09:06 → J4W 10-18 12:30 → J8W 10-28 14:18
PROVIDERS: ADMIT Hospitalist; ATTEND Internal Medicine
DX: K80.00 Calculus of gallbladder with acute cholecystitis without obstruction (principal); I50.33 Acute on chronic diastolic (congestive) heart failure; E43 Unspecified severe protein-calorie malnutrition; J96.01 Acute respiratory failure with hypoxia; C25.9 Malignant neoplasm of pancreas, unspecified; I13.0 Hypertensive heart and chronic kidney disease with heart failure and stage 1 through stage 4 chronic kidney disease, or unspecified chronic kidney disease; E87.2 Acidosis; F03.91 Unspecified dementia, unspecified severity, with behavioral disturbance; N17.9 Acute kidney failure, unspecified; J98.11 Atelectasis; N39.0 Urinary tract infection, site not specified; J44.1 Chronic obstructive pulmonary disease with (acute) exacerbation; E87.0 Hyperosmolality and hypernatremia; R73.9 Hyperglycemia, unspecified; I44.4 Left anterior fascicular block; N18.9 Chronic kidney disease, unspecified; E78.5 Hyperlipidemia, unspecified; I48.0 Paroxysmal atrial fibrillation; R94.5 Abnormal results of liver function studies; R13.10 Dysphagia, unspecified; D72.829 Elevated white blood cell count, unspecified; E87.5 Hyperkalemia; R74.01 Elevation of levels of liver transaminase levels; R41.82 Altered mental status, unspecified; R63.0 Anorexia; I71.4 Abdominal aortic aneurysm, without rupture; D69.6 Thrombocytopenia, unspecified; E83.39 Other disorders of phosphorus metabolism; K57.90 Diverticulosis of intestine, part unspecified, without perforation or abscess without bleeding; M48.061 Spinal stenosis, lumbar region without neurogenic claudication; I25.10 Atherosclerotic heart disease of native coronary artery without angina pectoris; I71.2 Thoracic aortic aneurysm, without rupture; I27.20 Pulmonary hypertension, unspecified; M54.5 Low back pain; Z96.643 Presence of artificial hip joint, bilateral; Z90.5 Acquired absence of kidney; Z85.53 Personal history of malignant neoplasm of renal pelvis; Z68.31 Body mass index [BMI] 31.0-31.9, adult; Z95.5 Presence of coronary angioplasty implant and graft
CPT/HCPCS: 36415; 36600; 70450-TC; 71045-TC-FY; 71250-TC; 72125-TC; 74150-TC; 74176-TC; 74230-TC-FY; 76705-TC; 78226-TC; 80048; 80053; 81003; 82248; 82550; 82803; 82962; 83605; 83690; 83735; 83880; 84100; 84439; 84443; 84481; 84484; 85025; 85027; 85610; 85730; 86022; 86140; 86850; 86900; 86901; 87040; 87086; 87804; 92611-GN; 93005; 93010; 94640; 94660; 97116-GP; 97162-GP; 99285-25; A9537; C9803; G0480; J0131; J1644; U0003; U0005